=== PATIENT | female | born 1985 | race American Indian/Alaskan Native ===

== ENCOUNTER 2017-05-24 10:09 | Emergency (ER) | payer BC, MEDICAID ==
[~2017-05-24] VITALS: Ht 160 cm; Wt 92.5 kg
[~2017-05-24 10:09] MED LIST: OMEP20CA74 OR
[2017-05-24] MEDS ORDERED: SODIUM CHLORIDE 0.9% 1,000 ML IVB ONE (10:38)
[2017-05-24] MEDS ORDERED: ONDANSETRON HCL 4 MG/2 ML VIAL IV ONE (10:45)
[2017-05-24] MEDS ORDERED: MORPHINE SULFATE 4 MG/ML SYRG IV ONE (10:45)
[2017-05-24 10:58] LABS: Basophils # (auto) 0 uL; Basophils % (auto) 0.5 % (0.0-2.0); CONDITION Y; DEFINITIVE SEE PRINTOUT; Eosinophils # (auto) 0.2 uL; Eosinophils % (auto) 3.9 % (0.0-7.0); Hematocrit 39.4 % (36.0-46.0); Hemoglobin 12.9 g/dL (12.2-16.2); Lymphocytes % (auto) 31.4 % (10.0-50.0); Mean Corpuscular Hemoglobin 25.5 pg (28.0-32.0); Mean Corpuscular Hgb Conc. 32.7 g/dL (32.0-36.0); Mean Corpuscular Volume 77.9 fL (80.0-100.0); Mean Platelet Volume 8.5 fL (7.4-10.4); Monocytes # (auto) 0.4 uL; Monocytes % (auto) 6.1 % (0.0-12.0); Neutrophils # (auto) 3.7 uL; Neutrophils % (auto) 58.1 % (37.0-80.0); Platelet Count (auto) 250 10^3/uL (140-450); Red Cell Distribution Width 15.4 % (11.6-16.0); White Blood Cell 6.3 10^3/uL (4.4-10.8)
[2017-05-24 11:10] LABS: Albumin 3.5 g/dL (3.4-5.0); BUN/Creatinine Ratio 11.1; Bilirubin, Total 0.3 mg/dL (0.2-1.0); Calcium 8.7 mg/dL (8.5-10.1); Potassium 3.7 mmol/L (3.5-5.1); Total Protein 7.8 g/dL (6.4-8.2)
[2017-05-24] MEDS ORDERED: KETOROLAC TROMETH 30 MG/ML 1ML VIAL IV ONE (11:15)
[2017-05-24 12:28] LABS: Urine Bilirubin Negative (Negative); Urine Blood TRACE /uL (Negative); Urine Color Yellow (Yellow); Urine Glucose Normal (Normal); Urine Nitrite Negative (Negative); Urine RBC <1 /hpf (0 - 4); Urine Squamous Epithelial Cell FEW /hpf (<5); Urine Urobilinogen Normal (Negative)
[2017-05-24 12:31] LABS: Urine Ketone 1+ (Negative)
[2017-05-24 14:54] VITALS: BP 150/95
== END 2017-05-24 14:53 | disposition home or self-care (01) ==
LOC: ER 10:10
DX: R10.31 Right lower quadrant pain (principal); K21.9 Gastro-esophageal reflux disease without esophagitis; Z90.49 Acquired absence of other specified parts of digestive tract
CPT/HCPCS: 36415; 74176; 76705; 76856; 80053; 81001; 82150; 83690; 85025; 96361; 96374; 99285; J1885; J7030

== ENCOUNTER → 2018-01-17 | Outpatient (CLI) | payer OTHER | END | disposition home or self-care (01) | LOC: LAB 10:26 | PROVIDERS: ATTEND Preventive Medicine Preventive Medicine/Occupational Environmental Medicine | DX: Z02.1 Encounter for pre-employment examination (principal) | CPT/HCPCS: 36415; 86706; 86735; 86762; 86765; 86787 ==

== ENCOUNTER 2019-07-19 12:00 | Observation (INO) | payer BC, MEDICAID ==
[2019-07-19] MEDS ORDERED: PREN-96 PO (12:36)
[2019-07-19] MEDS ORDERED: LACTATED RINGER'S 1,000 ML IV ONE (13:00)
[2019-07-19] MEDS: TERBUTALINE SULFATE 1 MG/ML 1ML VIAL SC SCH ×3 (13:15→15:43)
[2019-07-19 13:59] LABS: Urine Bacteria FEW /hpf (None Seen); Urine Blood Negative /uL (Negative); Urine Specific Gravity 1.011 (1.001-1.035); Urine WBC 1 /hpf (0 - 5)
[2019-07-19] MEDS ORDERED: NIFEdipine 10 MG CAP PO ONE (16:15)
== END 2019-07-19 17:40 | disposition home or self-care (01) | DRG 833 ==
LOC: LDRP 12:00
PROVIDERS: ADMIT Specialist; ATTEND Specialist
DX: O26.893 Other specified pregnancy related conditions, third trimester (principal); R10.30 Lower abdominal pain, unspecified; Z3A.32 32 weeks gestation of pregnancy
CPT/HCPCS: 59025; 81001; 81002; 96372; G0378; J3105; 96361

== ENCOUNTER 2019-08-05 20:11 | Observation (INO) | payer BC, MEDICAID ==
[~2019-08-05] VITALS: Ht 160 cm; Wt 86.2 kg
[~2019-08-05 20:11] MED LIST changes: -OMEP20CA74 OR; +PREN-96 PO
[2019-08-05 20:24] VITALS: BP 115/77
[2019-08-05] MEDS ORDERED: ACETAMINOPHEN 500 MG TAB PO ONE (23:00)
== END 2019-08-05 22:16 | disposition other institution (70) | DRG 833 ==
LOC: EEVIPCON 20:14 → ER 20:14 → LDRP 21:36
PROVIDERS: ADMIT Obstetrics & Gynecology; ATTEND Obstetrics & Gynecology
DX: O26.893 Other specified pregnancy related conditions, third trimester (principal); M25.561 Pain in right knee; K21.9 Gastro-esophageal reflux disease without esophagitis; O99.613 Diseases of the digestive system complicating pregnancy, third trimester; S81.011A Laceration without foreign body, right knee, initial encounter; W19.XXXA Unspecified fall, initial encounter; Y93.89 Activity, other specified; Y92.099 Unspecified place in other non-institutional residence as the place of occurrence of the external cause; Y99.8 Other external cause status; Z3A.34 34 weeks gestation of pregnancy; Z90.49 Acquired absence of other specified parts of digestive tract
CPT/HCPCS: 12002; 59025; 81002; 99284; G0378

== ENCOUNTER 2019-09-02 06:06 | Inpatient (IN) | payer BC, MEDICAID ==
[2019-09-02] VITALS (12 sets, daily range): BP systolic 102–120; BP diastolic 59–80
[~2019-09-02] VITALS: Ht 160 cm; Wt 89.4 kg
[2019-09-02] MEDS ORDERED: TERBUTALINE SULFATE 1 MG/ML 1ML VIAL SC ONE (07:00)
[2019-09-02 07:21] LABS: Basophils # (auto) 0 uL; Basophils % (auto) 0.2 % (0.0-2.0); Eosinophils # (auto) 0.1 uL; Eosinophils % (auto) 1.4 % (0.0-7.0); Hematocrit 35.9 % (36.0-46.0); Hemoglobin 12.3 g/dL (12.2-16.2); Lymphocytes # (auto) 1.4 uL; Lymphocytes % (auto) 17.2 % (10.0-50.0); Mean Corpuscular Hemoglobin 29.7 pg (28.0-32.0); Mean Corpuscular Hgb Conc. 34.2 g/dL (32.0-36.0); Mean Corpuscular Volume 86.8 fL (80.0-100.0); Monocytes # (auto) 0.5 uL; Monocytes % (auto) 6.3 % (0.0-12.0); Neutrophils # (auto) 6.3 uL; Neutrophils % (auto) 74.9 % (37.0-80.0); Nucleated Red Blood Cells % 0.1 %; Platelet Count (auto) 128 10^3/uL (140-450); Red Blood Cells 4.14 10^6/uL (4.0-5.20); Red Cell Distribution Width 14.5 % (11.8-14.3); White Blood Cell 8.4 10^3/uL (4.4-10.8)
[2019-09-02 07:26] LABS: Urine Amorphous Crystal FEW /hpf (None Seen); Urine Bacteria FEW /hpf (None Seen); Urine Blood Negative /uL (Negative); Urine Specific Gravity 1.002 (1.001-1.035); Urine WBC 4 /hpf (0 - 5)
[2019-09-02] MEDS ORDERED: LACTATED RINGER'S 1,000 ML IV ONE (07:30)
[2019-09-02] MEDS ORDERED: SUCCINYLCHOLINE CHLORIDE 20 MG/ML 10ML VIAL IV ONE (07:31)
[2019-09-02] MEDS ORDERED: fentaNYL CITRATE 100 MCG/2 ML VL ONE (07:32)
[2019-09-02] MEDS ORDERED: MEPERIDINE HCL (25 MG/ML) 1ML VIAL ONE (07:32)
[2019-09-02] MEDS ORDERED: MIDAZOLAM HCL 1MG/1ML-2 ML VIAL ONE (07:33)
[2019-09-02 07:39] LABS: INR < 0.93 (0.9-1.15); Partial Thromboplastin Time 25.1 sec (23.64-32.05)
[2019-09-02 07:47] LABS: Albumin 2.2 g/dL (3.4-5.0); BUN/Creatinine Ratio 5.6; Bilirubin, Total 0.3 mg/dL (0.2-1.0); Calcium 7.9 mg/dL (8.5-10.1); Potassium 3.7 mmol/L (3.5-5.1); Total Protein 6.1 g/dL (6.4-8.2)
[2019-09-02] MEDS ORDERED: PROPOFOL 10 MG/ML 20 ML IV ONE (07:55)
[2019-09-02] MEDS ORDERED: LACT. RINGERS/OXYTOCIN 20UNITS 1,000 ML IV SCH (08:23)
[2019-09-02] MEDS ORDERED: ceFAZolin 1GM/50ML 50 ML IV SCH (08:30)
[2019-09-02] MEDS ORDERED: ONDANSETRON HCL 4 MG/2 ML VIAL IV PRN ×2 (08:30→08:45)
[2019-09-02] MEDS ORDERED: HYDROmorphone HCL 2 MG/ML VL ONE (08:39)
[2019-09-02] MEDS: HYDROmorphone HCL 2 MG/ML VL IV PRN ×4 (08:39→09:09)
[2019-09-02] MEDS ORDERED: ePHEDrine SULFATE 50 MG/ML AMP IV PRN (08:45)
[2019-09-02] MEDS ORDERED: LABETALOL HCL 5 MG/ML 4ML SYRINGE IV PRN (08:45)
[2019-09-02] MEDS ORDERED: MORPHINE SULFATE 4 MG/ML SYR/VIAL IV PRN (08:45)
[2019-09-02] MEDS ORDERED: MIDAZOLAM HCL 1MG/1ML-2 ML VIAL IV PRN (08:45)
[2019-09-02] MEDS ORDERED: ACETAMINOPHEN IV 1000 MG/100ML (10MG/ML) IV ONE ×2 (09:45→19:00)
--- NOTE | 2019-09-02 10:30 | NUR ---
Post Op for LDRP: Received patient from PACU via bed to room 103. Patient A/A/Ox4, abdominal binder and bilateral SCD's are in place, IV fluids placed on pump and infusing per order, incisional site dressing dry/intact and Burgos Catheter to gravity draining clear yellow urine. Incentive Spirometer at bedside and instruction on proper use with return demonstration done by patient. Addendum: 09/02/19 at 1115 by Justina Graves RN incorrect time . Post op to LDRP at 10:00
[2019-09-02] MEDS ORDERED: MEASLES, MUMPS & RUBELLA VAC(MMRII) 0.5ML SC ONE (12:00)
--- NOTE | 2019-09-02 14:00 | NUR ---
Pericare Pericare done on patient. Small bleeding noted during fundal massage. Pericare saturated assisted . New pad and gown change done. Patient tolerated well.
[2019-09-02] MEDS: ceFAZolin 1GM/50ML 50 ML IV SCH ×2 (15:55→23:09)
[2019-09-02] MEDS ORDERED: WITCH HAZEL-GLYCERIN PAD TOP PRN (17:30)
[2019-09-02] MEDS ORDERED: PHISODERM TOP SOLN 240ML BTL TOP PRN (17:30)
[2019-09-02] MEDS ORDERED: DERMOPLAST 60ML BOTTLE TOP PRN (17:30)
--- NOTE | 2019-09-02 17:30 | NUR ---
Pericare Pericare provided . bleeding scant with 1 small clot noted during fundal massage. Fundus firm 1 below umbilicus. Pad changed and abdominal binder repositioned. Patient tolerated well.
[2019-09-02] MEDS: MORPHINE SULFATE 4 MG/ML SYR/VIAL IV PRN (17:42)
[2019-09-02 19:38] LABS: Basophils # (auto) 0 uL; Basophils % (auto) 0.3 % (0.0-2.0); Eosinophils # (auto) 0 uL; Eosinophils % (auto) 0.3 % (0.0-7.0); Hematocrit 34.4 % (36.0-46.0); Hemoglobin 11.8 g/dL (12.2-16.2); Lymphocytes # (auto) 1.3 uL; Lymphocytes % (auto) 11.1 % (10.0-50.0); Mean Corpuscular Hemoglobin 29.8 pg (28.0-32.0); Mean Corpuscular Hgb Conc. 34.4 g/dL (32.0-36.0); Mean Corpuscular Volume 86.7 fL (80.0-100.0); Monocytes # (auto) 0.7 uL; Monocytes % (auto) 5.7 % (0.0-12.0); Neutrophils # (auto) 9.7 uL; Neutrophils % (auto) 82.6 % (37.0-80.0); Platelet Count (auto) 132 10^3/uL (140-450); Red Blood Cells 3.97 10^6/uL (4.0-5.20); Red Cell Distribution Width 14.3 % (11.8-14.3); White Blood Cell 11.7 10^3/uL (4.4-10.8)
--- NOTE | 2019-09-02 21:00 | NUR ---
This RN assisted pt with sitting up in bed dangling. Warm water wash basin and fresh linen supplied as well as personal hygiene items to provide self care. Fresh gown provided and toothpaste/toothbrush. Pt cared for her hygiene. Assistance provided out of bed with slipper on, pagan to gravity and IV pole running at 125 LR to right hand. No dangling cords. This RN ambulated with patient 500 feet with in open crib. Pt tolerated well. All linen changed, ice chips provided
[2019-09-02] MEDS ORDERED: LACTATED RINGER'S 1,000 ML IV SCH (23:15)
[2019-09-03] MEDS ORDERED: ACETAMINOPHEN IV 1000 MG/100ML (10MG/ML) IV ONE (01:00)
[2019-09-03 02:56] VITALS: BP 102/70
--- NOTE | 2019-09-03 05:54 | NUR ---
Burgos cath removed, patient tolerated well. 400 clear yellow urine. Cindy care provided, dressing removed. [place] WEBMASTER, intact. Site benign. Dressing moist with serousanguenous fluid from incision.
[2019-09-03 06:50] VITALS: BP 115/70
[2019-09-03 06:59] LABS: Basophils # (auto) 0 uL; Basophils % (auto) 0.3 % (0.0-2.0); Eosinophils # (auto) 0 uL; Eosinophils % (auto) 0.3 % (0.0-7.0); Hematocrit 35.4 % (36.0-46.0); Hemoglobin 12.1 g/dL (12.2-16.2); Lymphocytes # (auto) 1.2 uL; Lymphocytes % (auto) 12.4 % (10.0-50.0); Mean Corpuscular Hemoglobin 29.9 pg (28.0-32.0); Mean Corpuscular Hgb Conc. 34.2 g/dL (32.0-36.0); Mean Corpuscular Volume 87.5 fL (80.0-100.0); Monocytes # (auto) 0.5 uL; Monocytes % (auto) 5.5 % (0.0-12.0); Neutrophils % (auto) 81.5 % (37.0-80.0); Platelet Count (auto) 128 10^3/uL (140-450); Red Blood Cells 4.05 10^6/uL (4.0-5.20); Red Cell Distribution Width 14.7 % (11.8-14.3); White Blood Cell 9.8 10^3/uL (4.4-10.8)
--- NOTE | 2019-09-03 07:40 | NUR ---
VOID #1 PT AMBULATED TO BATHROOM VIA STEADY GAIT. NO DISTRESS NOTED. PT VOIDED 400ML PINK TINGED URINE WITHOUT DIFFICULTY. WILL CONTINUE TO MONITOR.
[2019-09-03] MEDS: ceFAZolin 1GM/50ML 50 ML IV SCH (07:49)
[2019-09-03] MEDS: MORPHINE SULFATE 4 MG/ML SYR/VIAL IV PRN (07:49)
--- NOTE | 2019-09-03 09:29 | NUR ---
VOID #2 PT AMBULATED TO BATHROOM VIA STEADY GAIT. NO DISTRESS NOTED. PT VOIDED 375ML PINK TINGED URINE WITHOUT DIFFICULTY. WILL CONTINUE TO MONITOR.
[2019-09-03] MEDS ORDERED: HYDROcodone-ACET 5/325MG TAB PO PRN (10:15)
[2019-09-03] MEDS: DOCUSATE SOD 100 MG CAP PO SCH ×2 (10:38→21:31)
[2019-09-03] MEDS: SIMETHICONE 80 MG CHEWABLE TABLET PO PRN ×2 (10:38→16:14)
[2019-09-03] MEDS: HYDROcodone-ACET 5/325MG TAB PO PRN ×3 (10:39→21:34)
[2019-09-03 11:10] VITALS: BP 118/73
[2019-09-03] MEDS: IBUPROFEN 800 MG TAB PO PRN (13:39)
[2019-09-03 15:00] VITALS: BP 105/64
--- NOTE | 2019-09-03 16:10 | NUR ---
PT STATES SHE AHS PASSED FLATUS, ADVANCING DIET PER ORDERS. WILL CONTINUE TO MONITOR.
[2019-09-03 18:47] VITALS: BP 109/67
[2019-09-03] MEDS ORDERED: DOCUSATE SOD 100 MG CAP PO SCH (22:00)
[2019-09-03 23:00] VITALS: BP 105/62
[2019-09-04] MEDS: IBUPROFEN 800 MG TAB PO PRN ×3 (02:31→20:32)
[2019-09-04 02:34] VITALS: BP 127/72
[2019-09-04 06:30] VITALS: BP 102/63
[2019-09-04 07:07] LABS: RPR Non Reactive (Non Reactive)
[2019-09-04] MEDS: DOCUSATE SOD 100 MG CAP PO SCH ×2 (09:45→22:00)
[2019-09-04 11:00] VITALS: BP 105/75
[2019-09-04 15:15] VITALS: BP 109/67
[2019-09-04] MEDS: HYDROcodone-ACET 5/325MG TAB PO PRN ×2 (16:11→22:33)
[2019-09-04 19:15] VITALS: BP 106/72
--- NOTE | 2019-09-04 20:45 | NUR ---
IV removal IV DC'd in right hand with clean sterile technique, catheter fully intact. Pressure dressing applied to site. Patient tolerated well. NOTE:
[2019-09-04 23:00] VITALS: BP 118/72
[2019-09-05 03:15] VITALS: BP 104/62
[2019-09-05] MEDS: IBUPROFEN 800 MG TAB PO PRN (05:25)
--- NOTE | 2019-09-05 07:15 | NUR ---
REPORT RECEIVED FROM LELE MERIDA RN. WILL RESUME CARE OF PT.
[2019-09-05 07:25] VITALS: BP 127/79
[2019-09-05] MEDS ORDERED: MEASLES, MUMPS & RUBELLA VAC(MMRII) 0.5ML SC ONE (08:30)
--- NOTE | 2019-09-05 09:31 | NUR ---
Discharge: Discharge instructions given as ordered. Pt encouraged to follow up with EXECUTIVE ASSISTANT as instructed. All questions and concerns addressed. Patient verbalized understanding. Medication reconciliation completed and copy given to patient. All required/requested vaccines given and copies of vaccinations given to patient. Patient encouraged to prepare to depart unit.
--- NOTE | 2019-09-05 09:35 | NUR ---
Discharge: Patient taken to vehicle via ambulation per request with all personal belongings, accompanied by staff and family member. No distress noted at time of departure, no adverse changes in status since initial assessment.
== END 2019-09-05 09:35 | disposition home or self-care (01) | DRG 787 ==
LOC: LDRP 06:06 → EEVIPCON 06:50 → OBSVTOIN 06:50 → LDRP 08:07
PROVIDERS: ADMIT Obstetrics & Gynecology; ATTEND Obstetrics & Gynecology
PROC: 10D00Z1 Extraction of Products of Conception, Low, Open Approach (ICD-10-PCS; principal; 2019-09-02 07:35)
DX: O76 Abnormality in fetal heart rate and rhythm complicating labor and delivery (principal); O41.03X0 Oligohydramnios, third trimester, not applicable or unspecified; O77.0 Labor and delivery complicated by meconium in amniotic fluid; Z37.0 Single live birth; Z3A.37 37 weeks gestation of pregnancy
CPT/HCPCS: 36415; 51702; 59025; 80053; 81001; 81002; 84112; 85025; 85610; 85730; 86592; 86850; 86900; 86901; 90471; 94762; 96365; 96366; 96372; 96375; G0378; J0131; J0330; J0690; J2250; J2704

== ENCOUNTER → 2020-01-14 | Outpatient (CLI) | payer BC, MEDICAID ==
[~2020-01-14] VITALS: Ht 162.6 cm; Wt 88.5 kg
[2020-01-14 12:28] LABS: Basophils # (auto) 0 10 ^3/uL (0-0.2); Basophils % (auto) 0.5 % (0.0-2.0); Eosinophils # (auto) 0.4 10 ^3/uL (0-0.8); Eosinophils % (auto) 5.2 % (0.0-7.0); Hematocrit 43.7 % (36.0-46.0); Hemoglobin 14.4 g/dL (12.2-16.2); Lymphocytes # (auto) 2.1 10 ^3/uL (0.4-5.4); Lymphocytes % (auto) 26.9 % (10.0-50.0); Mean Corpuscular Hemoglobin 27.3 pg (28.0-32.0); Mean Corpuscular Volume 82.9 fL (80.0-100.0); Monocytes # (auto) 0.5 10 ^3/uL (0-1.3); Monocytes % (auto) 6.1 % (0.0-12.0); Neutrophils # (auto) 4.7 10 ^3/uL (1.6-8.6); Neutrophils % (auto) 61.3 % (37.0-80.0); Platelet Count (auto) 234 10^3/uL (140-450); Red Blood Cells 5.27 10^6/uL (4.0-5.20); Red Cell Distribution Width 13.4 % (11.8-14.3); White Blood Cell 7.7 10^3/uL (4.4-10.8)
[2020-01-14 12:35] LABS: Urine Bacteria NONE SEEN /hpf (None Seen); Urine Blood Negative /uL (Negative); Urine Specific Gravity 1.022 (1.001-1.035); Urine WBC <1 /hpf (0 - 5)
[2020-01-14 12:47] LABS: Albumin 3.4 g/dL (3.4-5.0); Calcium 8.8 mg/dL (8.5-10.1); Potassium 3.6 mmol/L (3.5-5.1)
[2020-01-14 12:50] LABS: Bilirubin, Total 0.2 mg/dL (0.2-1.0); INR 0.96 (0.9-1.15); Partial Thromboplastin Time 26.8 sec (23.64-32.05); Total Protein 7.9 g/dL (6.4-8.2)
== END | disposition home or self-care (01) ==
LOC: LAB 08:00 → EDSTATUS 01-18 07:00
PROVIDERS: ATTEND Specialist
DX: Z30.2 Encounter for sterilization (principal); E66.9 Obesity, unspecified; Z98.890 Other specified postprocedural states
CPT/HCPCS: 36415; 80053; 81001; 84702; 85025; 85610; 85730; 86850; 86900; 86901; 87086

== ENCOUNTER → 2020-05-05 | Outpatient (CLI) | payer BC, MEDICAID | END | disposition home or self-care (01) | LOC: LAB 17:40 | PROVIDERS: ATTEND Physician Assistant | DX: Z03.818 Encounter for observation for suspected exposure to other biological agents ruled out (principal) | CPT/HCPCS: C9803; U0003; 87635 ==

== ENCOUNTER → 2020-06-18 | Outpatient (CLI) | payer OTHER | END | disposition home or self-care (01) | LOC: LAB 16:04 | PROVIDERS: ATTEND Nurse Practitioner Family | DX: Z03.818 Encounter for observation for suspected exposure to other biological agents ruled out (principal) ==

== ENCOUNTER → 2020-06-26 | Outpatient (CLI) | payer OTHER | END | disposition home or self-care (01) | LOC: LAB 16:33 | PROVIDERS: ATTEND Nurse Practitioner Family | DX: Z20.828 Contact with and (suspected) exposure to other viral communicable diseases (principal) | CPT/HCPCS: C9803; U0003 ==

== ENCOUNTER → 2020-09-11 | Outpatient (CLI) | payer OTHER | END | disposition home or self-care (01) | LOC: LAB 06:09 | PROVIDERS: ATTEND Nurse Practitioner Family | DX: Z20.828 Contact with and (suspected) exposure to other viral communicable diseases (principal) | CPT/HCPCS: C9803; U0003 ==

== ENCOUNTER 2020-12-31 15:30 | Emergency (ER) | payer BC, MEDICAID ==
[~2020-12-31] VITALS: Ht 162.6 cm; Wt 95.7 kg
[2020-12-31] MEDS ORDERED: cefTRIAXone SOD 1,000 MG VL IM ONE (16:15)
[2020-12-31] MEDS ORDERED: methylPREDNISolone SOD SUCC 125 MG/2 ML VL IM ONE (16:15)
[2020-12-31 16:19] VITALS: BP 138/93
== END 2020-12-31 16:51 | disposition home or self-care (01) ==
LOC: EEVIPCON 15:30 → ER 15:30
DX: H66.92 Otitis media, unspecified, left ear (principal); J01.01 Acute recurrent maxillary sinusitis; K21.9 Gastro-esophageal reflux disease without esophagitis; Z90.49 Acquired absence of other specified parts of digestive tract
CPT/HCPCS: 96372; 99284; J0696; J2930

== ENCOUNTER → 2021-02-11 | Outpatient (CLI) | payer BC, MEDICAID ==
[2021-02-11 10:23] LABS: Basophils # (auto) 0 10 ^3/uL (0-0.2); Basophils % (auto) 0.5 % (0.0-2.0); Eosinophils # (auto) 0.2 10 ^3/uL (0-0.8); Eosinophils % (auto) 3.6 % (0.0-7.0); Hematocrit 35.2 % (36.0-46.0); Hemoglobin 11.1 g/dL (12.2-16.2); Lymphocytes # (auto) 2.1 10 ^3/uL (0.4-5.4); Lymphocytes % (auto) 33.9 % (10.0-50.0); Mean Corpuscular Hemoglobin 22.4 pg (28.0-32.0); Mean Corpuscular Hgb Conc. 31.6 g/dL (32.0-36.0); Mean Corpuscular Volume 70.9 fL (80.0-100.0); Monocytes # (auto) 0.5 10 ^3/uL (0-1.3); Monocytes % (auto) 7.3 % (0.0-12.0); Neutrophils # (auto) 3.4 10 ^3/uL (1.6-8.6); Neutrophils % (auto) 54.7 % (37.0-80.0); Nucleated Red Blood Cells % 0.1 %; Platelet Count (auto) 268 10^3/uL (140-450); Red Blood Cells 4.97 10^6/uL (4.0-5.20); Red Cell Distribution Width 15.8 % (11.8-14.3); White Blood Cell 6.2 10^3/uL (4.4-10.8)
[2021-02-11 11:21] LABS: Albumin 3.3 g/dL (3.4-5.0); Potassium 3.8 mmol/L (3.5-5.1)
[2021-02-11 11:29] LABS: BUN/Creatinine Ratio 9.6; Bilirubin, Total 0.3 mg/dL (0.2-1.0); Calcium 8.7 mg/dL (8.5-10.1); Total Protein 7.1 g/dL (6.4-8.2)
[2021-02-11 11:30] LABS: Free T4 (Free Thyroxine) 1.08 ng/dL (0.89-1.76)
[2021-02-11 11:31] LABS: T3 Total 1.23 ng/mL (0.60-1.81)
== END | disposition home or self-care (01) ==
LOC: LAB 10:09
PROVIDERS: ATTEND Physician Assistant
DX: N92.1 Excessive and frequent menstruation with irregular cycle (principal); R53.83 Other fatigue; K21.9 Gastro-esophageal reflux disease without esophagitis; E55.9 Vitamin D deficiency, unspecified; E66.8 Other obesity
CPT/HCPCS: 36415; 80053; 80061; 82306; 84439; 84443; 84480; 85025

== ENCOUNTER 2021-05-22 11:21 | Inpatient (IN) | payer BC, MEDICAID ==
[2021-05-19 12:32] LABS: Basophils # (auto) 0.1 10 ^3/uL (0-0.2); Eosinophils # (auto) 0.3 10 ^3/uL (0-0.8); Hemoglobin 10.6 g/dL (12.2-16.2); Mean Corpuscular Hemoglobin 21.5 pg (28.0-32.0); Mean Corpuscular Hgb Conc. 31.6 g/dL (32.0-36.0); Mean Corpuscular Volume 68.1 fL (80.0-100.0); Monocytes # (auto) 0.6 10 ^3/uL (0-1.3); White Blood Cell 7.2 10^3/uL (4.4-10.8)
[2021-05-19 12:33] LABS: Basophils % (auto) 0.7 % (0.0-2.0); Eosinophils % (auto) 4.3 % (0.0-7.0); Hematocrit 33.4 % (36.0-46.0); Lymphocytes % (auto) 28.3 % (10.0-50.0); Monocytes % (auto) 7.9 % (0.0-12.0); Neutrophils # (auto) 4.2 10 ^3/uL (1.6-8.6); Neutrophils % (auto) 58.8 % (37.0-80.0); Red Blood Cells 4.91 10^6/uL (4.0-5.20)
[2021-05-19 12:39] LABS: Partial Thromboplastin Time 26.3 sec (23.0-31.2)
[2021-05-19 13:18] LABS: Urine Bacteria FEW /hpf (None Seen); Urine Blood 1+ /uL (Negative); Urine Specific Gravity 1.019 (1.001-1.035); Urine WBC 1 /hpf (0 - 5)
[2021-05-19 13:32] LABS: Albumin 3.2 g/dL (3.4-5.0); BUN/Creatinine Ratio 9.3; Calcium 8.2 mg/dL (8.5-10.1); Potassium 3.7 mmol/L (3.5-5.1)
[2021-05-19 13:35] LABS: Bilirubin, Total 0.3 mg/dL (0.2-1.0); Total Protein 7.1 g/dL (6.4-8.2)
[~2021-05-22] VITALS: Ht 160 cm; Wt 97.9 kg
[~2021-05-22 11:21] MED LIST changes: -PREN-96 PO; +SERT25TA84 PO
[2021-05-22] MEDS ORDERED: ceFAZolin 1GM/50ML 50 ML IV ONE (13:16)
[2021-05-22] MEDS ORDERED: MIDAZOLAM HCL 2MG/2ML 2ml VIAL (1mg/ml) ONE (14:05)
[2021-05-22] MEDS ORDERED: fentaNYL CITRATE 100 MCG/2 ML VL ONE (14:05)
[2021-05-22] MEDS ORDERED: PROPOFOL 10 MG/ML 20 ML IV ONE (14:06)
[2021-05-22] MEDS ORDERED: LIDOCAINE 2% (LOCAL ANESTH.) PF 5ml SDV ONE (14:06)
[2021-05-22] MEDS ORDERED: ONDANSETRON HCL 4 MG/2 ML VIAL ONE (14:06)
[2021-05-22] MEDS ORDERED: NEOSTIGMINE 1 MG/ML INJ (10mg/10ML VIAL) ONE (15:06)
[2021-05-22] MEDS ORDERED: GLYCOPYRROLATE 0.2 MG/ML 1ML VIAL ONE (15:06)
[2021-05-22] MEDS ORDERED: SUGAMMADEX 200mg/2ml Vial (100MG/ML) IV ONE (15:25)
[2021-05-22] MEDS ORDERED: ONDANSETRON HCL 4 MG/2 ML VIAL IV PRN ×3 (15:30→19:00)
[2021-05-22] MEDS ORDERED: LACTATED RINGER'S 1,000 ML IV SCH (15:30)
[2021-05-22] MEDS ORDERED: HYDROmorphone HCL 2 MG/ML VL ONE (15:47)
[2021-05-22] MEDS: HYDROmorphone HCL 2 MG/ML VL IV PRN ×2 (15:48→16:04)
[2021-05-22 17:10] LABS: Basophils # (auto) 0 10 ^3/uL (0-0.2); Eosinophils # (auto) 0.1 10 ^3/uL (0-0.8); Monocytes # (auto) 0.4 10 ^3/uL (0-1.3)
[2021-05-22 17:12] LABS: Basophils % (auto) 0.3 % (0.0-2.0); Eosinophils % (auto) 1.2 % (0.0-7.0); Hematocrit 31.4 % (36.0-46.0); Lymphocytes # (auto) 1.2 10 ^3/uL (0.4-5.4); Lymphocytes % (auto) 14.1 % (10.0-50.0); Mean Corpuscular Hemoglobin 21.9 pg (28.0-32.0); Mean Corpuscular Hgb Conc. 31.8 g/dL (32.0-36.0); Mean Corpuscular Volume 68.7 fL (80.0-100.0); Monocytes % (auto) 4.3 % (0.0-12.0); Neutrophils % (auto) 80.1 % (37.0-80.0); Red Blood Cells 4.57 10^6/uL (4.0-5.20); Red Cell Distribution Width 16.9 % (11.8-14.3); White Blood Cell 8.7 10^3/uL (4.4-10.8)
[2021-05-22] MEDS ORDERED: NITROGLYCERIN 0.4 MG SL TAB SL PRN ×2 (18:15→19:00)
[2021-05-22] MEDS ORDERED: MORPHINE SULFATE INJECTION 2 MG/ML SYRG IV PRN ×3 (18:15→19:00)
[2021-05-22] MEDS ORDERED: LACTATED RINGER'S 2,000 ML IV ONE (18:45)
[2021-05-22] MEDS ORDERED: CLINDAMYCIN 600MG IV 50 ML IV ONE (19:00)
[2021-05-22] MEDS ORDERED: LORazepam 0.5 MG TAB PO PRN (19:00)
[2021-05-22] MEDS ORDERED: ALUM & MAG HYDROX-SIMETH LIQ(MAALOX) 30 ML PO PRN (19:00)
[2021-05-22] MEDS ORDERED: HYDROcodone-ACET 5/325MG TAB PO PRN (19:00)
[2021-05-22] MEDS ORDERED: DOCUSATE SOD 100 MG CAP PO PRN (19:00)
[2021-05-22] MEDS ORDERED: ALBUTEROL SULF 2.5 MG/0.5ML(0.5%) NEB SOLN NEB PRN (19:15)
[2021-05-22] MEDS ORDERED: CEFTRIAXONE SODIUM 2 GM in D5W 5% 50 ML IV ONE (19:45)
[2021-05-22 20:15] VITALS: BP 124/72
[2021-05-22] MEDS: SODIUM CHLORIDE 0.9% 1,000 ML IV SCH (20:30)
[2021-05-22 20:56] LABS: Cholesterol 164 mg/dL (< 200); HDL Cholesterol 42 mg/dL (40-59); LDL Cholesterol 104 mg/dL (< 100); Triglycerides 103 mg/dL (< 150)
[2021-05-22] MEDS ORDERED: IPRATROPIUM BROM 0.5 MG/2.5ML INH SOL NEB SCH (22:00)
[2021-05-23] VITALS (7 sets, daily range): BP systolic 90–124; BP diastolic 57–74
[2021-05-23 00:08] LABS: Urine Bacteria NONE SEEN /hpf (None Seen); Urine Blood 3+ /uL (Negative); Urine Mucus FEW (None Seen); Urine Specific Gravity 1.017 (1.001-1.035); Urine WBC 1 /hpf (0 - 5)
[2021-05-23 00:27] LABS: Alcohol, Urine < 3.0 mg/dL (0-10); Amphetamine Screen, Urine NEGATIVE (NEGATIVE); Barbiturate Scree,Urine NEGATIVE (NEGATIVE); Benzodiazephine Screen, Urine POSITIVE (NEGATIVE); Cannabinoid Screen, Urine NEGATIVE (NEGATIVE); Cocaine Screen, Urine NEGATIVE (NEGATIVE); Opiate Scree,Urine NEGATIVE (NEGATIVE); Phencyclidine Screen, Urine NEGATIVE (NEGATIVE)
[2021-05-23] MEDS: CLINDAMYCIN 600MG IV 50 ML IV SCH ×3 (05:12→21:00)
[2021-05-23] MEDS ORDERED: IPRATROPIUM BROM 0.5 MG/2.5ML INH SOL ONE (06:37)
[2021-05-23] MEDS ORDERED: ALBUTEROL SULF 2.5 MG/0.5ML(0.5%) NEB SOLN ONE (06:37)
[2021-05-23 06:59] LABS: Basophils # (auto) 0 10 ^3/uL (0-0.2); Basophils % (auto) 0.3 % (0.0-2.0); Eosinophils # (auto) 0.1 10 ^3/uL (0-0.8); Eosinophils % (auto) 0.8 % (0.0-7.0); Lymphocytes # (auto) 1.9 10 ^3/uL (0.4-5.4)
[2021-05-23 07:01] LABS: Hematocrit 31.8 % (36.0-46.0); Hemoglobin 10.2 g/dL (12.2-16.2); Lymphocytes % (auto) 20.2 % (10.0-50.0); Mean Corpuscular Hgb Conc. 32.1 g/dL (32.0-36.0); Mean Corpuscular Volume 68.5 fL (80.0-100.0); Monocytes # (auto) 0.6 10 ^3/uL (0-1.3); Monocytes % (auto) 6.6 % (0.0-12.0); Neutrophils # (auto) 6.8 10 ^3/uL (1.6-8.6); Neutrophils % (auto) 72.1 % (37.0-80.0); Red Blood Cells 4.65 10^6/uL (4.0-5.20); Red Cell Distribution Width 16.8 % (11.8-14.3); White Blood Cell 9.4 10^3/uL (4.4-10.8)
[2021-05-23 07:10] LABS: INR 1.03 (0.9-1.15); Partial Thromboplastin Time 25.2 sec (23.0-31.2)
[2021-05-23 07:17] LABS: Potassium 3.7 mmol/L (3.5-5.1)
[2021-05-23 07:27] LABS: Albumin 2.7 g/dL (3.4-5.0); BUN/Creatinine Ratio 8.7; Bilirubin, Total 0.4 mg/dL (0.2-1.0); Calcium 7.8 mg/dL (8.5-10.1); Magnesium 2.1 mg/dL (1.6-2.6); Phosphorus 3.1 mg/dL (2.5-4.90); Total Protein 6.5 g/dL (6.4-8.2)
[2021-05-23] MEDS: IPRATROPIUM BROM 0.5 MG/2.5ML INH SOL NEB PRN ×2 (07:33→13:06)
[2021-05-23] MEDS: cefTRIAXone 1GM/50ML D5W 50 ML IV SCH (09:06)
[2021-05-23] MEDS: ACETAMINOPHEN 325 MG TAB PO PRN ×2 (09:18→19:53)
[2021-05-23] MEDS: SODIUM CHLORIDE 0.9% 1,000 ML IV SCH (11:51)
[2021-05-24] MEDS: SODIUM CHLORIDE 0.9% 1,000 ML IV SCH (04:20)
[2021-05-24 05:00] VITALS: BP 106/68
[2021-05-24] MEDS: CLINDAMYCIN 600MG IV 50 ML IV SCH ×2 (05:00→12:47)
[2021-05-24 08:15] VITALS: BP 98/62
[2021-05-24 09:00] VITALS: BP 98/62
[2021-05-24] MEDS: cefTRIAXone 1GM/50ML D5W 50 ML IV SCH (09:09)
[2021-05-24 11:18] VITALS: BP 98/62
== END 2021-05-24 12:15 | disposition home or self-care (01) | DRG 744 ==
LOC: SUR 11:21 → CENTRAL 19:10
PROVIDERS: ADMIT Hospitalist; ATTEND Specialist
PROC: 0UL74CZ Occlusion of Bilateral Fallopian Tubes with Extraluminal Device, Percutaneous Endoscopic Approach (ICD-10-PCS; principal; 2021-05-22 14:11)
DX: Z30.2 Encounter for sterilization (principal); J69.0 Pneumonitis due to inhalation of food and vomit; E44.1 Mild protein-calorie malnutrition; E66.01 Morbid (severe) obesity due to excess calories; F32.9 Major depressive disorder, single episode, unspecified; D64.9 Anemia, unspecified; R41.0 Disorientation, unspecified; Z20.822 Contact with and (suspected) exposure to COVID-19; Z80.0 Family history of malignant neoplasm of digestive organs; Z80.1 Family history of malignant neoplasm of trachea, bronchus and lung; Z80.3 Family history of malignant neoplasm of breast; Z80.41 Family history of malignant neoplasm of ovary; Z80.8 Family history of malignant neoplasm of other organs or systems; Z81.8 Family history of other mental and behavioral disorders; Z82.0 Family history of epilepsy and other diseases of the nervous system; Z82.3 Family history of stroke; Z82.49 Family history of ischemic heart disease and other diseases of the circulatory system; Z82.5 Family history of asthma and other chronic lower respiratory diseases; Z82.62 Family history of osteoporosis; Z83.3 Family history of diabetes mellitus; Z98.891 History of uterine scar from previous surgery; Z90.49 Acquired absence of other specified parts of digestive tract; Z64.1 Problems related to multiparity; Z68.37 Body mass index [BMI] 37.0-37.9, adult
CPT/HCPCS: 36415; 36600; 71045; 80053; 80061; 80307; 81001; 81025; 82306; 82805; 82962; 83036; 83735; 83880; 84100; 84443; 84484; 84702; 85025; 85610; 85730; 86850; 86900; 86901; 87040; 87086; 94640; G0378; J0690; J0696; J2001; J2250; J2405; J2704; J3490; J7060

== ENCOUNTER → 2021-10-19 | Outpatient (CLI) | payer BC, MEDICAID | END | disposition home or self-care (01) | LOC: LAB 07:08 | PROVIDERS: ATTEND Nurse Practitioner Family | DX: Z11.52 Encounter for screening for COVID-19 (principal); Z20.822 Contact with and (suspected) exposure to COVID-19 | CPT/HCPCS: C9803; U0003 ==

== ENCOUNTER 2021-12-14 09:34 | Emergency (ER) | payer BC, MEDICAID ==
[~2021-12-14] VITALS: Ht 162.6 cm; Wt 97.5 kg
[~2021-12-14 09:34] MED LIST changes: +PANT1INJ3 PO
[2021-12-14 10:47] LABS: Albumin 2.9 g/dL (3.4-5.0); Calcium 7.9 mg/dL (8.5-10.1); Potassium 4.2 mmol/L (3.5-5.1)
[2021-12-14 10:51] LABS: BUN/Creatinine Ratio 10.1; Bilirubin, Total 0.4 mg/dL (0.2-1.0); Total Protein 6.4 g/dL (6.4-8.2)
[2021-12-14] MEDS ORDERED: ONDANSETRON HCL 4 MG/2 ML VIAL IV ONE (11:00)
[2021-12-14] MEDS ORDERED: SODIUM CHLORIDE 0.9% 1,000 ML IV ONE ×2 (11:00)
[2021-12-14] MEDS ORDERED: KETOROLAC TROMETH 30 MG/ML 1ML VIAL IV ONE (11:00)
[2021-12-14 11:02] LABS: Urine Bacteria NONE SEEN /hpf (None Seen); Urine Blood Negative /uL (Negative); Urine Mucus FEW (None Seen); Urine Specific Gravity 1.019 (1.001-1.035); Urine WBC 1 /hpf (0 - 5)
[2021-12-14 11:15] LABS: Basophils # (auto) 0 10 ^3/uL (0-0.2); Eosinophils # (auto) 0.2 10 ^3/uL (0-0.8); Hemoglobin 9.3 g/dL (12.2-16.2); Lymphocytes # (auto) 1.6 10 ^3/uL (0.4-5.4); Monocytes # (auto) 0.4 10 ^3/uL (0-1.3); Nucleated Red Blood Cells % 0.1 %; White Blood Cell 4.7 10^3/uL (4.4-10.8)
[2021-12-14 11:17] LABS: Basophils % (auto) 0.6 % (0.0-2.0); Eosinophils % (auto) 4.6 % (0.0-7.0); Lymphocytes % (auto) 32.9 % (10.0-50.0); Mean Corpuscular Hemoglobin 20.3 pg (28.0-32.0); Mean Corpuscular Hgb Conc. 30.9 g/dL (32.0-36.0); Mean Corpuscular Volume 65.7 fL (80.0-100.0); Monocytes % (auto) 7.9 % (0.0-12.0); Neutrophils # (auto) 2.6 10 ^3/uL (1.6-8.6); Red Blood Cells 4.56 10^6/uL (4.0-5.20); Red Cell Distribution Width 16.8 % (11.8-14.3)
[2021-12-14 13:33] VITALS: BP 122/74
== END 2021-12-14 15:09 | disposition home or self-care (01) ==
LOC: ER 09:37
DX: E86.0 Dehydration (principal); M47.897 Other spondylosis, lumbosacral region; Z90.49 Acquired absence of other specified parts of digestive tract
CPT/HCPCS: 36415; 72131; 74176; 80053; 81001; 81025; 85025; 96361; 96374; 96375; 99285; J1885; J2405; J7030

== ENCOUNTER → 2022-01-05 | Day surgery (SDC) | payer BC, MEDICAID ==
[2021-12-02 09:46] LABS: Basophils # (auto) 0 10 ^3/uL (0-0.2); Eosinophils # (auto) 0.3 10 ^3/uL (0-0.8); Lymphocytes # (auto) 1.8 10 ^3/uL (0.4-5.4); Mean Corpuscular Volume 66.4 fL (80.0-100.0); Nucleated Red Blood Cells % 0.1 %
[2021-12-02 09:48] LABS: Basophils % (auto) 0.3 % (0.0-2.0); Hematocrit 34.6 % (36.0-46.0); Hemoglobin 10.5 g/dL (12.2-16.2); Lymphocytes % (auto) 25.3 % (10.0-50.0); Mean Corpuscular Hemoglobin 20.1 pg (28.0-32.0); Mean Corpuscular Hgb Conc. 30.3 g/dL (32.0-36.0); Monocytes # (auto) 0.5 10 ^3/uL (0-1.3); Monocytes % (auto) 7.3 % (0.0-12.0); Neutrophils # (auto) 4.5 10 ^3/uL (1.6-8.6); Neutrophils % (auto) 63.1 % (37.0-80.0); Red Blood Cells 5.22 10^6/uL (4.0-5.20); Red Cell Distribution Width 16.5 % (11.8-14.3); White Blood Cell 7.2 10^3/uL (4.4-10.8)
[2021-12-02 10:04] LABS: Potassium 3.6 mmol/L (3.5-5.1)
[2021-12-02 10:36] LABS: Albumin 3.1 g/dL (3.4-5.0); BUN/Creatinine Ratio 8.6; Bilirubin, Total 0.2 mg/dL (0.2-1.0); Calcium 8.9 mg/dL (8.5-10.1); Total Protein 7.5 g/dL (6.4-8.2)
[2022-01-04 11:31] LABS: Partial Thromboplastin Time 25.4 sec (23.6-33.0)
[2022-01-04 11:35] LABS: Potassium 3.3 mmol/L (3.5-5.1)
[2022-01-04 11:39] LABS: Albumin 3.3 g/dL (3.4-5.0); BUN/Creatinine Ratio 11.2; Calcium 8.6 mg/dL (8.5-10.1)
[2022-01-04 12:07] LABS: Lymphocytes # (auto) 2.1 10 ^3/uL (0.4-5.4); Monocytes # (auto) 0.5 10 ^3/uL (0-1.3); Neutrophils # (auto) 4.4 10 ^3/uL (1.6-8.6)
[2022-01-04 12:09] LABS: Basophils # (auto) 0 10 ^3/uL (0-0.2); Basophils % (auto) 0.5 % (0.0-2.0); Eosinophils # (auto) 0.3 10 ^3/uL (0-0.8); Eosinophils % (auto) 4.1 % (0.0-7.0); Hematocrit 32.5 % (36.0-46.0); Lymphocytes % (auto) 28.4 % (10.0-50.0); Mean Corpuscular Hemoglobin 20.4 pg (28.0-32.0); Mean Corpuscular Hgb Conc. 30.9 g/dL (32.0-36.0); Mean Corpuscular Volume 66.2 fL (80.0-100.0); Monocytes % (auto) 6.5 % (0.0-12.0); Neutrophils % (auto) 60.5 % (37.0-80.0); Nucleated Red Blood Cells % 0.1 %; Red Blood Cells 4.91 10^6/uL (4.0-5.20); Red Cell Distribution Width 16.8 % (11.8-14.3); White Blood Cell 7.2 10^3/uL (4.4-10.8)
[2022-01-04 12:26] LABS: Bilirubin, Total 0.2 mg/dL (0.2-1.0); Total Protein 7.5 g/dL (6.4-8.2)
[~2022-01-05] VITALS: Ht 162.6 cm; Wt 97.1 kg
[~2022-01-05] MED LIST changes: +LIDOCAINE VISCOUS 2% 15ML UD ONE; +SODIUM CHLORIDE LOCK 10 ML ONE
[2022-01-05] MEDS: fentaNYL CITRATE 100 MCG/2 ML VL ONE ×2 (10:21→10:24)
[2022-01-05] MEDS: MIDAZOLAM HCL 5 MG/ML-1ML VIAL ONE ×3 (10:21→10:27)
[2022-01-05] MEDS: diphenhdrAMINE HCL 50 MG/1 ML VL ONE ×2 (10:21→10:24)
[2022-01-05 11:10] VITALS: BP 113/66
== END | disposition home or self-care (01) ==
LOC: GI 09:18
PROVIDERS: ATTEND Internal Medicine Gastroenterology
DX: R13.10 Dysphagia, unspecified (principal); K29.50 Unspecified chronic gastritis without bleeding; K31.7 Polyp of stomach and duodenum; K44.9 Diaphragmatic hernia without obstruction or gangrene; K29.90 Gastroduodenitis, unspecified, without bleeding; K21.00 Gastro-esophageal reflux disease with esophagitis, without bleeding; F41.9 Anxiety disorder, unspecified; Z82.49 Family history of ischemic heart disease and other diseases of the circulatory system; Z83.3 Family history of diabetes mellitus; Z81.8 Family history of other mental and behavioral disorders; Z98.890 Other specified postprocedural states; Z79.899 Other long term (current) drug therapy; Z98.891 History of uterine scar from previous surgery; Z98.51 Tubal ligation status; Z90.49 Acquired absence of other specified parts of digestive tract; Z20.822 Contact with and (suspected) exposure to COVID-19
CPT/HCPCS: 36415; 43239; 80053; 81025; 84702; 85025; 85610; 85730; 88305; 88312; 88342; J1200; J2250; J3010; U0003; 99152

== ENCOUNTER → 2022-10-15 | Outpatient (CLI) | payer BC, MEDICAID ==
[~2022-10-15] MED LIST changes: -LIDOCAINE VISCOUS 2% 15ML UD ONE; -SODIUM CHLORIDE LOCK 10 ML ONE
[2022-10-15 10:34] LABS: Basophils # (auto) 0 10 ^3/uL (0-0.2); Eosinophils # (auto) 0.4 10 ^3/uL (0-0.8); Eosinophils % (auto) 4.4 % (0.0-7.0); Hemoglobin 11.8 g/dL (12.2-16.2); Lymphocytes # (auto) 2.6 10 ^3/uL (0.4-5.4); Mean Corpuscular Hemoglobin 22.1 pg (28.0-32.0); Mean Corpuscular Hgb Conc. 31.1 g/dL (32.0-36.0)
[2022-10-15 10:37] LABS: Basophils % (auto) 0.3 % (0.0-2.0); Hematocrit 37.9 % (36.0-46.0); Mean Corpuscular Volume 71.3 fL (80.0-100.0); Monocytes # (auto) 0.6 10 ^3/uL (0-1.3); Monocytes % (auto) 6.6 % (0.0-12.0); Neutrophils # (auto) 5.1 10 ^3/uL (1.6-8.6); Neutrophils % (auto) 58.7 % (37.0-80.0); Red Blood Cells 5.32 10^6/uL (4.0-5.20); Red Cell Distribution Width 15.3 % (11.8-14.3); White Blood Cell 8.6 10^3/uL (4.4-10.8)
[2022-10-15 10:38] LABS: Urine Bacteria FEW /hpf (None Seen); Urine Blood 2+ /uL (Negative); Urine Specific Gravity 1.022 (1.001-1.035); Urine WBC 2 /hpf (0 - 5)
[2022-10-15 11:08] LABS: Potassium 3.8 mmol/L (3.5-5.1)
[2022-10-15 11:17] LABS: Albumin 3.1 g/dL (3.4-5.0); BUN/Creatinine Ratio 12.8; Bilirubin, Total 0.6 mg/dL (0.2-1.0); Total Protein 7.6 g/dL (6.4-8.2)
== END | disposition home or self-care (01) ==
LOC: LAB 10:22
PROVIDERS: ATTEND Internal Medicine
DX: Z00.00 Encounter for general adult medical examination without abnormal findings (principal); E66.9 Obesity, unspecified; R13.10 Dysphagia, unspecified
CPT/HCPCS: 36415; 80053; 80061; 81001; 82306; 83036; 84443; 85025

== ENCOUNTER 2023-12-29 11:30 | Emergency (ER) | payer BC, MEDICAID ==
[~2023-12-29] VITALS: Ht 160 cm; Wt 95.4 kg
[2023-12-29 12:08] LABS: Basophils # (auto) 0 10 ^3/uL (0-0.2); Lymphocytes # (auto) 2.4 10 ^3/uL (0.4-5.4); Lymphocytes % (auto) 30.4 % (10.0-50.0); Neutrophils # (auto) 4.6 10 ^3/uL (1.6-8.6); Neutrophils % (auto) 57.7 % (37.0-80.0)
[2023-12-29 12:10] LABS: Basophils % (auto) 0.6 % (0.0-2.0); Eosinophils # (auto) 0.3 10 ^3/uL (0-0.8); Eosinophils % (auto) 3.3 % (0.0-7.0); Hemoglobin 9.9 g/dL (12.2-16.2); Mean Corpuscular Hemoglobin 18.9 pg (28.0-32.0); Mean Corpuscular Hgb Conc. 29.9 g/dL (32.0-36.0); Mean Corpuscular Volume 63.3 fL (80.0-100.0); Monocytes # (auto) 0.6 10 ^3/uL (0-1.3); Nucleated Red Blood Cells % 0.1 %; Red Blood Cells 5.22 10^6/uL (4.0-5.20); Red Cell Distribution Width 17.8 % (11.8-14.3)
[2023-12-29 12:21] LABS: Chloride 108 mmol/L (98-107); Potassium 3.8 mmol/L (3.5-5.1); Sodium 140 mmol/L (136-145)
[2023-12-29 12:22] LABS: Anion Gap 7 (5-15); Carbon Dioxide 25 mmol/L (20-30)
[2023-12-29 12:25] VITALS: BP 144/89; PULSE 103; RESP 18; TEMP 97.7; O2SAT 97
[2023-12-29 12:27] LABS: BUN/Creatinine Ratio 10.6 (10.0-20.0); Blood Urea Nitrogen 9 mg/dL (9-23); Glucose 84 mg/dL (74-106)
[2023-12-29 13:57] LABS: Urine Bacteria FEW /hpf (None Seen); Urine Blood Negative /uL (Negative); Urine Clarity Clear (Clear); Urine Protein, UAD Negative (Negative); Urine Specific Gravity 1.008 (1.001-1.035); Urine Urobilinogen Normal (Negative); Urine WBC 1 /hpf (0 - 5)
[2023-12-29 13:58] LABS: Urine Color Straw (Yellow)
== END 2023-12-29 13:39 | disposition home or self-care (01) ==
LOC: ER 11:30 → EEVIPCON 11:30 → ER 13:39
DX: N83.201 Unspecified ovarian cyst, right side (principal); R10.2 Pelvic and perineal pain; K21.9 Gastro-esophageal reflux disease without esophagitis; F32.9 Major depressive disorder, single episode, unspecified; Z86.73 Personal history of transient ischemic attack (TIA), and cerebral infarction without residual deficits; Z98.890 Other specified postprocedural states; Z79.899 Other long term (current) drug therapy
CPT/HCPCS: 36415; 76856; 80048; 81001; 84702; 85025

== ENCOUNTER 2025-05-15 11:25 | Emergency (ER) | payer BC, MEDICAID ==
[~2025-05-15] VITALS: Ht 160 cm; Wt 99.3 kg
--- NOTE | 2025-05-15 12:08 | ECG ---
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
--- NOTE | 2025-05-15 12:15 | ED.PDOC ---
DIRECTOR ELECTRONICS HPI Comments 39y F who presents to the ED for chief complaint of vaginal bleeding. Pt states she has been having vaginal bleeding for the past 4 days. Pt states 1x days prior she has been passing large clots the size of her fist with associated smaller clots. Pt states she has been using tampons and pads but states she still has been bleeding through them. Pt states she woke up today, and states "it felt like I got hit by truck." Pt states she started to have dizziness, palpitations, chills and headache and came to the ED for further evaluation. Pt states she is not currently and had tubal ligation 2x years prior. Pt states she does have history of heavy periods and anemia but denies any past blood transfusion. Pt states she did see PCP and got referral for OB appt that is upcoming. Pt otherwise has noted vitals including; heart rate 141, BP 142/97 , RR 17 and 02 sat of 98% on room air. Pt is alert and oriented x 4 and no noted changes in gait, vision or speech is noted. Chief Complaint: Vaginal Bleed Time Seen by MD: 12:00 Reviewed Notes: Medications, Allergies Allergies: Coded Allergies: NO KNOWN ALLERGIES (Unverified , 01/14/20) Home Meds Active Scripts Cephalexin Monohydrate (Cephalexin) 500 Mg Cap, 1 CAP PO QID for 10 Days, #40 CAP Prov:MARGOT BONNER MD 05/15/25 Medroxyprogesterone Acetate (PROVERA) 5 Mg Tab, 2 TAB PO DAILY for 10 Days, #20 TAB 11 Refills Prov:MARGOT BONNER MD 05/15/25 Reported Medications Pantoprazole Sodium (PANTOPRAZOLE SODIUM) 40 Mg Inj, 40 MG PO DAILY, INJ 12/01/21 Sertraline Hcl (Zoloft) 25 Mg Tab, 25 MG PO, TAB 05/19/21 Information Source: Patient Mode of Arrival: Ambulatory Brought in by: self Past Medical History PAST MEDICAL HISTORY: Anemia, Depression, GERD Surgical History: Cholecystectomy CAREER TECHNICAL SUPERVISOR History: No Pertinent CAREER TECHNICAL SUPERVISOR History Family History Family History: Reviewed,noncontributory to illness Social History Smoker: Non-Smoker Alcohol: Occasionally Drugs: Denies Drug Use Lives In: Home Constitutional: reports: chills, fatigue, weakness; denies: diaphoresis, fever, malaise, sweats, others EENTM: denies: blurred vision, double vision, ear bleeding, ear discharge, ear drainage, ear pain, ear ringing, eye pain, eye redness, hearing loss, mouth pain, mouth swelling, nasal discharge, nose bleeding, nose congestion, nose pain, photophobia, tearing, throat pain, throat swelling, voice changes, others Respiratory: denies: cough, hemoptysis, orthopnea, SOB at rest, shortness of breath, SOB with excertion, stridor, wheezing, others Cardiovascular: denies: chest pain, dizzy spells, diaphoresis, Dyspnea on exertion, edema, irregular heart beat, left arm pain, lightheadedness, palpitations, PND, syncope, others Gastrointestinal: denies: abdomen distended, abdominal pain, blood streaked bowels, constipated, diarrhea, dysphagia, difficulty swallowing, hematemesis, melena, nausea, poor appetite, poor fluid intake, rectal bleeding, rectal pain, vomiting, others Genitourinary: denies: abnormal vagina bleeding, burning, dyspareunia, dysuria, flank pain, frequency, hematuria, incontinence, pain, , vagina discharge, urgency, others Neurological: reports: dizziness; denies: fainting, headache, left sided numbness, left sided weakness, numbness, paresthesia, pre-existing deficit, right sided numbness, right sided weakness, seizure, speech problems, tingling, tremors, weakness, others Musculoskeletal: denies: back pain, gout, joint pain, joint swelling, muscle pain, muscle stiffness, neck pain, others Integumetry: denies: bruises, change in color, change in hair/nails, dryness, laceration, lesions, lumps, rash, wounds, others Allergic/Immunocompromised: denies: Difficulty Healing, Frequent Infections, Hives, Itching, others Hematologic/Lymphatic: denies: anemia, blood clots, easy bleeding, easy bruising, swollen glands, others Endocrine: denies: excessive hunger, excessive sweating, excessive thirst, excessive urination, flushing, intolerance to cold, intolerance to heat, unexplained weight gain, unexplained weight loss, others Psychiatric: denies: anxiety, bipolar disorder, depression, hopeless, panic disorder, schizophrenia, sleepless, suicidal, others All Other Systems: Reviewed and Negative Physical Exam General Appearance: Mild Distress HEENT: Other (Pupils and face symmetric. Moist mucous membranes.) Neck: Full Range of Motion, Normal Inspection Respiratory: Lungs Clear, No Accessory Muscle Use, No Respiratory Distress, Normal Breath Sounds Cardiovascular: No Edema, No JVD, Tachycardia Breast Exam: Deferred Gastrointestinal: Non Tender, Soft Genitalia: Deferred Pelvic: Deferred Rectal: Deferred Extremities: Normal inspection, Normal range of motion, Non-tender, No pedal edema Neurologic: Alert (Oriented x4), Normal Affect, Normal Mood, Other (Ambulatory) Cerebellar Function: NOT DONE Reflexes: NOT DONE Skin: Dry, Pallor, Warm Lymphatic: NOT DONE Was a procedure done? Was a procedure done?: No Differential Diagnosis (CAREER TECHNICAL SUPERVISOR) Vaginal Bleeding: Blood Loss Anemia, Menorrhagia, Menstrual Bleeding, Myomatous Uterus, Precipitous Hct, UTI X-Ray, Labs, Meds, VS Vital Signs Date Time Temp Pulse Resp B/P (MAP) Pulse Ox O2 Delivery O2 Flow Rate FiO2 05/15/25 15:52 98.3 72 16 131/73 (92) 97 98.3 05/15/25 14:00 83 16 135/83 (100) 97 05/15/25 13:05 97 Room Air* 0 21 05/15/25 12:56 110 16 96 Room Air* 0 21 05/15/25 12:00 98.3 119 22 129/76 (93) 97 98.3 05/15/25 11:59 100 05/15/25 11:44 97.6 128 17 142/97 (112) 98 97.6 Lab Test 05/15/25 15:36 05/15/25 12:31 05/15/25 12:04 Range/Units Urine Color Light-yellow Yellow Urine Clarity Clear Clear Urine pH 6.5 5.0-9.0 Urine Specific [place] 1.013 1.001-1.035 Urine Protein Negative Negative Urine Ketones Negative Negative Urine Blood 1+ H Negative /uL Urine Nitrite Negative Negative Urine Bilirubin Negative Negative Urine Urobilinogen Normal Negative mg/dL Urine Leukocyte Esterase Negative Negative /uL Urine RBC 1 0 - 4 /hpf Urine Microscopic WBC < 1 0-5 /HPF Urine Squamous Epithelial Cells Few <5 /hpf Urine Bacteria Few H None Seen /hpf Urine Mucus Few None Seen Urine Glucose Normal Normal mg/dL Urine Test Negative Negative POC Glucose 132 H 70-106 mg/dl White Blood Count 6.5 4.4-10.8 10^3/uL Red Blood Count 5.02 4.0-5.20 10^6/uL Hemoglobin 8.9 L 12.2-16.2 g/dL Hematocrit 30.4 L 36.0-46.0 % Mean Corpuscular Volume 60.5 L 80.0-100.0 fL Mean Corpuscular Hemoglobin 17.7 L 28.0-32.0 pg Mean Corpuscular Hemoglobin Concent 29.2 L 32.0-36.0 g/dL Red Cell Distribution Width 18.9 H 11.8-14.3 % Platelet Count 318 140-450 10^3/uL Mean Platelet Volume 7.6 6.9-10.8 fL Neutrophils (%) (Auto) 58.5 37.0-80.0 % Lymphocytes (%) (Auto) 28.0 10.0-50.0 % Monocytes (%) (Auto) 7.2 0.0-12.0 % Eosinophils (%) (Auto) 5.6 0.0-7.0 % Basophils (%) (Auto) 0.7 0.0-2.0 % Neutrophils # (Auto) 3.8 1.6-8.6 10 ^3/uL Lymphocytes # (Auto) 1.8 0.4-5.4 10 ^3/uL Monocytes # (Auto) 0.5 0-1.3 10 ^3/uL Eosinophils # (Auto) 0.4 0-0.8 10 ^3/uL Basophils # (Auto) 0 0-0.2 10 ^3/uL Nucleated Red Blood Cells 0.1 % Prothrombin Time 10.4 9.3-11.8 sec Prothrombin Time INR 0.98 0.9-1.15 Activated Partial Thromboplast Time 24.1 L 24.5-34.5 SEC Sodium Level 142 136-145 mmol/L Potassium Level 3.6 3.5-5.1 mmol/L Chloride Level 108 H 98-107 mmol/L Carbon Dioxide Level 26 20-31 mmol/L Anion Gap 8 5-15 Blood Urea Nitrogen 9 9-23 mg/dL Creatinine 0.85 0.550-1.02 mg/dL Glomerular Filtration Rate Calc 90 >90 mL/min BUN/Creatinine Ratio 10.6 10.0-20.0 Serum Glucose 116 H 74-106 mg/dL Calcium Level 9.0 8.7-10.4 mg/dL Current Medications Medications (Trade) Dose Ordered Sig/Margarita Route Start Time Stop Time Status Last Admin Sodium Chloride 2,000 ml @ 1,000 mls/hr Q2H ONCE IV 05/15/25 11:45 05/15/25 13:44 DC 05/15/25 12:29 Acetaminophen (Tylenol Tablet Or Capsule) 1,000 mg ONCE ONCE PO 05/15/25 12:00 05/15/25 12:01 DC 05/15/25 12:26 [place] [address] Ph: [phone] DIAGNOSTIC IMAGING Diagnostic Imaging Report : [id number] Signed PATIENT: ALEX CHAUDHARY MACCT: [id number] UNIT: [id number] : 1985 LOC: ER ROOM / BED: / AGE / SEX: 39 / F ADM STATUS: REG ER SERVICE 1154 ORDERING PHYSICIAN: MARGOT BONNER MD PROCEDURE(s): PELUS - PELVIC REASON: vaginal bleeding ORDER NUMBER(s): [id number], ACCESSION NUMBER(s): [id number] INDICATION: vaginal bleeding TECHNIQUE: Multiple real-time grayscale transabdominal sonographic images along with color and duplex Doppler of the uterus and ovaries were obtained. COMPARISON: US PELVIC on DOS: 12/29/23 FINDINGS: The uterus measures 10.5 x 6.0 x 4.4 cm. The uterus is heterogeneous. There is a intrauterine mass of the uterine fundus measuring 2 cm. The endometrial stripe measures 0.6 cm. The right ovary measures 3.7 x 1.9 x 3.1 cm. The left ovary measures 2.9 x 2.0 x 2.1 cm. Subsequent color and duplex Doppler interrogation of the ovaries demonstrated symmetric vascular flow to both ovaries, though this does not exclude the po ssibility of torsion due to the dual blood supply. IMPRESSION: Heterogeneous uterus with a intrauterine mass of the uterine fundus measuring 2 cm. ATED BY: ISABELA GALLEGOS MD DICTATED DATE/TIME: 05/15/25 1251 SIGNED BY: ISABELA GALLEGOS MD SIGNED DATE/TIME: 05/15/25 8499 CC: X-Ray, Labs, Meds, VS Comment 39-year-old female with a history of anemia, depression, GERD and heavy menses presenting with heavy vaginal bleeding, fatigue, headache and malaise Vitals remarkable for heart rate 128, BP 142/97 Exam remarkable for tachycardia Rhythm strip independently interpreted by me: Sinus tach, rate 128, no ectopy. Pelvic ultrasound: IMPRESSION: Heterogeneous uterus with a intrauterine mass of the uterine fundus measuring 2 cm. CBC remarkable for hemoglobin 8.9, hematocrit 30.4, metabolic panel and coag panel unremarkable, UA pending Patient treated with the following in the ED: 2 L 0.9 normal saline IV bolus, Tylenol 1 g p.o. On re-evaluation, patient is no longer tachycardic. Other vitals were stable. She states she feels as though the bleeding has subsided. Hospitalization was considered for hemoglobin trend and inpatient shank pinner evaluation, however patient stated she did not want to be hospitalized and would prefer to go home and rest. She states she has a referral for a divorce attorney with whom she would prefer to follow-up as an outpatient. Patient appears stable for discharge at this time with a prescription for Provera and close follow-up with her divorce attorney. I will also cover the patient for possible UTI with Keflex. Time of 1ST Reevaluation: 15:00 Reevaluation 1ST: Improved Patient Education/Counseling: Diagnosis, Treatment, Need For Follow Up Family Education/Counseling: No Family Present Departure 1 Departure Time of Disposition: 15:00 Impression: Primary Impression: Vaginal bleeding Additional Impressions: Anemia Qualified Codes: D64.9 - Anemia, unspecified Mass of uterus determined by ultrasound Disposition: 01 HOME / SELF CARE / HOMELESS Condition: Stable Referrals: BETO FLOWER DO Additional Instructions: Blood tests showed anemia, however you did not require a blood transfusion. Your ultrasound showed a 2 cm intrauterine mass, possibly a fibroid. Please see the report below. I have prescribed medication to help stop the bleeding. I have also prescribed antibiotics to cover a possible urinary tract infection. Follow-up with your OBGYN as soon as possible for further evaluation of your bleeding. Alternatively, follow-up directly with Dr. Flower. Return to ER for persistent or worsening symptoms. [address] [address] Ph: [phone] DIAGNOSTIC IMAGING Diagnostic Imaging Report : [id number] Signed PATIENT: ALEX CHAUDHARY ACCT: [id number] UNIT: [id number] : 1985 LOC: ER ROOM / BED: / AGE / SEX: 39 / F ADM STATUS: REG ER SERVICE 1154 ORDERING PHYSICIAN: MARGOT BONNER MD PROCEDURE(s): PELUS - PELVIC REASON: vaginal bleeding ORDER NUMBER(s): [id number], ACCESSION NUMBER(s): [id number] INDICATION: vaginal bleeding TECHNIQUE: Multiple real-time grayscale transabdominal sonographic images along with color and duplex Doppler of the uterus and ovaries were obtained. COMPARISON: US PELVIC on DOS: 12/29/23 FINDINGS: The uterus measures 10.5 x 6.0 x 4.4 cm. The uterus is heterogeneous. There is a intrauterine mass of the uterine fundus measuring 2 cm. The endometrial stripe measures 0.6 cm. The right ovary measures 3.7 x 1.9 x 3.1 cm. The left ovary measures 2.9 x 2.0 x 2.1 cm. Subsequent color and duplex Doppler interrogation of the ovaries demonstrated symmetric vascular flow to both ovaries, though this does not exclude the possibility of torsion due to the dual blood supply. IMPRESSION: Heterogeneous uterus with a intrauterine mass of the uterine fundus measuring 2 cm. ATED BY: ISABELA GALLEGOS MD DICTATED DATE/TIME: 05/15/25 125 SIGNED BY: ISABELA GALLEGOS MD SIGNED DATE/TIME: 05/15/25 1251 CC: e-Prescriptions Cephalexin Monohydrate (Cephalexin) 500 Mg Cap 1 CAP PO QID for 10 Days, #40 CAP Prov: MARGOT BONNER MD 05/15/25 Medroxyprogesterone Acetate (PROVERA) 5 Mg Tab 2 TAB PO DAILY for 10 Days, #20 TAB 11 Refills Prov: MARGOT BONNER MD 05/15/25 Discharged With: Relative Critical Care Note Critical Care Time?: No Stability Stability form required: No Heart Score Heart Score: Heart Score Response (Comments) Value History N/A 0 EKG N/A 0 Age N/A 0 Risk Factors N/A 0 Troponin N/A 0 Total 0 I personally scribed for MARGOT BONNER MD ([facility] on 05/15/25 at 12:15. Electronically submitted by Capo Diehl ([facility]). I personally scribed for MARGOT BONNER MD ([facility]) on 05/15/25 at 12:18. Electronically submitted by Capo Diehl ([facility] I personally scribed for MARGOT BONNER MD ([facility]) on 05/15/25 at 13:51. Electronically submitted by Capo Diehl ([facility] MARGOT BONNER MD May 15, 2025 12:15
[2025-05-15] MEDS: ACETAMINOPHEN 500 MG TAB or CAP PO ONE (12:26)
[2025-05-15] MEDS: SODIUM CHLORIDE 0.9% 2,000 ML IV ONE (12:29)
[2025-05-15 12:36] LABS: Hematocrit 30.4 % (36.0-46.0); Hemoglobin 8.9 g/dL (12.2-16.2); INR 0.98 (0.9-1.15); Mean Corpuscular Hemoglobin 17.7 pg (28.0-32.0); Mean Corpuscular Volume 60.5 fL (80.0-100.0); Nucleated Red Blood Cells % 0.1 %; Partial Thromboplastin Time 24.1 SEC (24.5-34.5); Potassium 3.6 mmol/L (3.5-5.1); Prothrombin Time 10.4 sec (9.3-11.8); Sodium 142 mmol/L (136-145)
[2025-05-15 12:37] LABS: Anion Gap 8 (5-15); Calcium 9.0 mg/dL (8.7-10.4); Carbon Dioxide 26 mmol/L (20-31)
[2025-05-15 12:38] LABS: Chloride 108 mmol/L (98-107)
[2025-05-15 12:42] LABS: BUN/Creatinine Ratio 10.6 (10.0-20.0); Blood Urea Nitrogen 9 mg/dL (9-23); Glucose 116 mg/dL (74-106)
--- NOTE | 2025-05-15 12:53 | DVH ---
INDICATION: vaginal bleeding TECHNIQUE: Multiple real-time grayscale transabdominal sonographic images along with color and duplex Doppler of the uterus and ovaries were obtained. COMPARISON: US PELVIC on DOS: 12/29/23 FINDINGS: The uterus measures 10.5 x 6.0 x 4.4 cm. The uterus is heterogeneous. There is a intrauteri ne mass of the uterine fundus measuring 2 cm. The endometrial stripe measures 0.6 cm. The right ovary measures 3.7 x 1.9 x 3.1 cm. The left ovary measures 2.9 x 2.0 x 2.1 cm. Subsequent color and duplex Doppler interrogation of the ovaries demonstrated symmetric vascular flow to both ovaries, though this does not exclude the possibility of torsion due to the dual blood suppl y. IMPRESSION: Heterogeneous uterus with a intrauterine mass of the uterine fundus measuring 2 cm.
[2025-05-15 12:56] VITALS: PULSE 110; RESP 16; O2SAT 96
[2025-05-15] MEDS ORDERED: CEPH500C PO (15:35)
[2025-05-15] MEDS ORDERED: MEDR5TAB28 PO (15:35)
[2025-05-15 15:52] VITALS: BP 131/73; PULSE 72; RESP 16; TEMP 98.3; O2SAT 97
[2025-05-15 15:57] LABS: Urine Protein, UAD Negative (Negative)
== END 2025-05-15 15:53 | disposition home or self-care (01) ==
LOC: EEVIPCON 11:25 → ER 11:25
DX: D64.9 Anemia, unspecified (principal); N93.9 Abnormal uterine and vaginal bleeding, unspecified; N85.8 Other specified noninflammatory disorders of uterus; F32.A Depression, unspecified; Z90.49 Acquired absence of other specified parts of digestive tract; Z79.899 Other long term (current) drug therapy; Z98.51 Tubal ligation status; Z86.2 Personal history of diseases of the blood and blood-forming organs and certain disorders involving the immune mechanism
CPT/HCPCS: 36415; 76856; 80048; 81001; 81025; 82947; 85025; 85610; 85730; 86850; 86900; 86901; 93005; 96360; 99284; J7030; 82962

== ENCOUNTER 2025-06-03 13:10 | Outpatient (CLI) | payer BC, MEDICAID ==
[~2025-06-03 13:10] MED LIST changes: +CEPH500C PO; +MEDR5TAB28 PO
[2025-06-03 13:24] LABS: Urine Protein, UAD Negative (Negative)
== END 2025-06-03 17:00 | disposition home or self-care (01) ==
LOC: LAB 13:10
PROVIDERS: ATTEND Nurse Practitioner
DX: N39.0 Urinary tract infection, site not specified (principal)
CPT/HCPCS: 81001; 87086

== ENCOUNTER → 2025-06-18 | Outpatient (CLI) | payer BC, MEDICAID ==
[2025-06-18 09:12] LABS: Urine Protein, UAD Negative (Negative)
[2025-06-18 09:14] LABS: Hemoglobin 9.3 g/dL (12.2-16.2)
[2025-06-18 09:16] LABS: Hematocrit 30.7 % (36.0-46.0); Mean Corpuscular Hemoglobin 18.4 pg (28.0-32.0); Mean Corpuscular Volume 60.7 fL (80.0-100.0); Nucleated Red Blood Cells % 0.0 %
[2025-06-18 09:26] LABS: Iron 25.0 ug/dL (50-170)
[2025-06-18 09:27] LABS: Alanine Aminotransferase 22 U/L (7-40); Albumin 4.3 g/dL (3.2-4.8); Alkaline Phosphatase 112 U/L (46-116); Anion Gap 11 (5-15); BUN/Creatinine Ratio 9.2 (10.0-20.0); Bilirubin, Total 0.4 mg/dL (0.2-1.0); Calcium 8.9 mg/dL (8.7-10.4); Carbon Dioxide 24 mmol/L (20-31); Chloride 106 mmol/L (98-107); Cholesterol 164 mg/dL (< 200); Glucose 81 mg/dL (74-106); Magnesium 2.0 mg/dL (1.6-2.6); Potassium 3.9 mmol/L (3.5-5.1); Sodium 141 mmol/L (136-145); Total Protein 7.3 g/dL (5.7-8.2); Triglycerides 136 mg/dL (< 150)
[2025-06-18 09:31] LABS: Free T3 2.92 pg/mL (2.3-4.2)
[2025-06-18 09:32] LABS: Ferritin 2.0 ng/mL (10-291); Free T4 (Free Thyroxine) 1.09 ng/dL (0.89-1.76)
[2025-06-18 09:38] LABS: Blood Urea Nitrogen 8 mg/dL (9-23); HDL Cholesterol 37 mg/dL (40-59)
[2025-06-18 09:39] LABS: Total Iron Binding Capacity 439.0 ug/dL (250-425)
[2025-06-18 09:45] LABS: Ovalocytes FEW
[2025-06-18 09:59] LABS: Uric Acid 5.4 mg/dL (3.1-7.8)
== END | disposition home or self-care (01) ==
LOC: LAB 08:39
PROVIDERS: ATTEND Obstetrics & Gynecology
DX: N39.9 Disorder of urinary system, unspecified (principal)
CPT/HCPCS: 36415; 80053; 80061; 80198; 81001; 82306; 82607; 82728; 83540; 83550; 83735; 84403; 84439; 84443; 84480; 84481; 84550; 85025; 87086

== ENCOUNTER 2025-07-16 11:22 | Outpatient (CLI) | payer BC, MEDICAID ==
[2025-07-16] MEDS ORDERED: PANT40TA2 PO (11:24)
[2025-07-16] MEDS ORDERED: SUCR1SUS26 PO (11:24)
[2025-07-17 08:07] LABS: Immunoglobulin A 271 mg/dL (87-352)
== END 2025-07-16 17:00 | disposition home or self-care (01) ==
LOC: LAB 11:22
PROVIDERS: ATTEND Internal Medicine Gastroenterology
DX: K21.9 Gastro-esophageal reflux disease without esophagitis (principal); R19.7 Diarrhea, unspecified
CPT/HCPCS: 82784; 83516; 86003; 86255

== ENCOUNTER 2025-09-05 10:23 | Emergency (ER) | payer BC, MEDICAID ==
[~2025-09-05] VITALS: Ht 160 cm; Wt 98.0 kg
[~2025-09-05 10:23] MED LIST changes: +PANT40TA2 PO; +SUCR1SUS26 PO
--- NOTE | 2025-09-05 10:37 | ED.PDOC ---
HPI Comments 39 y/o F, presents to the ED for CC of chest pain. Patient states, she has been experiencing left-sided chest pain that radiates to her back sudden onset, 0730 this morning (09/05/25). Patient reports, that she does have PMHx of anxiety and is unsure if symptoms maybe related. At this time patient describes pain to be 6/10 on the pain scale and "dull" in nature. Patient denies palpitations, nausea, vomiting, headache, or shortness of breath. No other symptoms or modifying factors are present at this time. Chief Complaint: Chest Pain Time Seen by MD: 10:30 Primary Care Provider: MINDA Saba Notes: Nurses Notes, Medications, Allergies Allergies: Coded Allergies: NO KNOWN ALLERGIES (Unverified , 01/14/20) Home Meds Active Scripts Sucralfate (CARAFATE SUSP) 1 Gm/10 Ml Ss, 10 ML PO QID for 30 Days, #1200 ML 3 Refills Prov:FLORENTINO WAYNE RESIDENT 07/16/25 Pantoprazole Sodium Sesquihydr (Protonix) 40 Mg Tab, 40 MG PO BID for 30 Days, #60 TAB 3 Refills Prov:FLORENTINO WAYNE RESIDENT 07/16/25 Cephalexin Monohydrate (Cephalexin) 500 Mg Cap, 1 CAP PO QID for 10 Days, #40 CAP Prov:MARGOT BONNER MD 05/15/25 Medroxyprogesterone Acetate (PROVERA) 5 Mg Tab, 2 TAB PO DAILY for 10 Days, #20 TAB 11 Refills Prov:MARGOT BONNER MD 05/15/25 Reported Medications Pantoprazole Sodium (PANTOPRAZOLE SODIUM) 40 Mg Inj, 40 MG PO DAILY, INJ 12/01/21 Sertraline Hcl (Zoloft) 25 Mg Tab, 25 MG PO, TAB 05/19/21 Information Source: Patient Mode of Arrival: Ambulatory Severity: Moderate Timing: Hours Duration: Since onset Prehospital treatment: None Location: Chest (L) Radiation: Neck Quality: Other (dull) Onset: At Rest Cardiac Risk Factors: None PE Risk Factors: None History of: None Modifying Factors: Nothing Associated Signs and Symptoms: None Past Medical History PAST MEDICAL HISTORY: Anemia, Anxiety, Depression, GERD Surgical History: Cholecystectomy, , Tubal Ligation COFFEE SAMPLER History: No Pertinent COFFEE SAMPLER History Family History Family History: Reviewed,noncontributory to illness Social History Smoker: Non-Smoker Alcohol: Occasionally Drugs: Denies Drug Use Lives In: Home Constitutional: denies: chills, diaphoresis, fatigue, fever, malaise, sweats, weakness, others EENTM: denies: blurred vision, double vision, ear bleeding, ear discharge, ear drainage, ear pain, ear ringing, eye pain, eye redness, hearing loss, mouth pain, mouth swelling, nasal discharge, nose bleeding, nose congestion, nose pain, photophobia, tearing, throat pain, throat swelling, voice changes, others Respiratory: denies: cough, hemoptysis, orthopnea, SOB at rest, shortness of breath, SOB with excertion, stridor, wheezing, others Cardiovascular: reports: chest pain; denies: dizzy spells, diaphoresis, Dyspnea on exertion, edema, irregular heart beat, left arm pain, lightheadedness, palpitations, PND, syncope, others Gastrointestinal: denies: abdomen distended, abdominal pain, blood streaked bowels, constipated, diarrhea, dysphagia, difficulty swallowing, hematemesis, melena, nausea, poor appetite, poor fluid intake, rectal bleeding, rectal pain, vomiting, others Genitourinary: denies: abnormal vagina bleeding, burning, dyspareunia, dysuria, flank pain, frequency, hematuria, incontinence, pain, , vagina discharge, urgency, others Neurological: denies: dizziness, fainting, headache, left sided numbness, left sided weakness, numbness, paresthesia, pre-existing deficit, right sided numbness, right sided weakness, seizure, speech problems, tingling, tremors, weakness, others Musculoskeletal: denies: back pain, gout, joint pain, joint swelling, muscle pain, muscle stiffness, neck pain, others Integumetry: denies: bruises, change in color, change in hair/nails, dryness, laceration, lesions, lumps, rash, wounds, others Allergic/Immunocompromised: denies: Difficulty Healing, Frequent Infections, Hives, Itching, others Hematologic/Lymphatic: denies: anemia, blood clots, easy bleeding, easy bruising, swollen glands, others Endocrine: denies: excessive hunger, excessive sweating, excessive thirst, excessive urination, flushing, intolerance to cold, intolerance to heat, unexplained weight gain, unexplained weight loss, others Psychiatric: denies: anxiety, bipolar disorder, depression, hopeless, panic disorder, schizophrenia, sleepless, suicidal, others All Other Systems: Reviewed and Negative Physical Exam General Appearance: No Apparent Distress HEENT: Normal ENT Inspection, Pharynx Normal, TMs Normal Neck: Full Range of Motion, Non-Tender, Normal, Normal Inspection Respiratory: Chest Non-Tender, Lungs Clear, No Accessory Muscle Use, No Respiratory Distress, Normal Breath Sounds Cardiovascular: No Edema, No JVD, No Murmur, No Gallop, Tachycardia Breast Exam: Deferred Gastrointestinal: No Organomegaly, Non Tender, No Pulsatile Mass, Normal Bowel Sounds, Soft Genitalia: Deferred Pelvic: Deferred Rectal: Deferred Extremities: No calf tenderness, Normal capillary refill, Normal inspection, Normal range of motion, Non-tender, No pedal edema Musculoskeletal : Apperance: Normal Neurologic: Alert, hydrotel operator II-XII nml as Tested, No Motor Deficits, Normal Affect, Normal Mood, No Sensory Deficits Cerebellar Function: Normal Reflexes: Normal Skin: Dry, Normal Color, Warm Lymphatic: No Adenopathy EKG EKG : Pulse Rate (adult): 101 [place]: Normal Cardiac Rhythm: ST Block: None Hypertrophy: None ST: Normal Was a procedure done? Was a procedure done?: No CP Differential Dx Differential Diagnosis: Angina, Anxiety / Panic Attack Differential Diagnosis: HTN Essential, HTN Accelerated Differential Diagnosis: Chest Wall Pain, Costochondritis, Esophageal reflux/spasm, Gastritis X-Ray, Labs, Meds, VS Vital Signs Date Time Temp Pulse Resp B/P (MAP) Pulse Ox O2 Delivery O2 Flow Rate FiO2 09/05/25 11:22 86 09/05/25 10:37 101 09/05/25 10:29 97.7 93 20 136/83 100 97.7 09/05/25 10:28 101 Lab Test 09/05/25 11:30 09/05/25 10:37 Range/Units Troponin I High Sensitivity < 3 L < 3 L </=34 ng/L White Blood Count 8.2 4.4-10.8 10^3/uL Red Blood Count 5.15 4.0-5.20 10^6/uL Hemoglobin 9.4 L 12.2-16.2 g/dL Hematocrit 31.4 L 36.0-46.0 % Mean Corpuscular Volume 61.0 L 80.0-100.0 fL Mean Corpuscular Hemoglobin 18.2 L 28.0-32.0 pg Mean Corpuscular Hemoglobin Concent 29.8 L 32.0-36.0 g/dL Red Cell Distribution Width 18.3 H 11.8-14.3 % Platelet Count 329 140-450 10^3/uL Mean Platelet Volume 8.2 6.9-10.8 fL Neutrophils (%) (Auto) 57.7 37.0-80.0 % Lymphocytes (%) (Auto) 30.1 10.0-50.0 % Monocytes (%) (Auto) 8.3 0.0-12.0 % Eosinophils (%) (Auto) 3.4 0.0-7.0 % Basophils (%) (Auto) 0.5 0.0-2.0 % Neutrophils # (Auto) 4.7 1.6-8.6 10 ^3/uL Lymphocytes # (Auto) 2.5 0.4-5.4 10 ^3/uL Monocytes # (Auto) 0.7 0-1.3 10 ^3/uL Eosinophils # (Auto) 0.3 0-0.8 10 ^3/uL Basophils # (Auto) 0 0-0.2 10 ^3/uL Nucleated Red Blood Cells 0.0 % Platelet Estimate Adequate Hypochromasia (manual) Slight Microcytosis Moderate Ovalocytes Few D-Dimer, Quantitative 1.24 H 0.0-0.49 mg/L FEU Sodium Level 142 136-145 mmol/L Potassium Level 3.7 3.5-5.1 mmol/L Chloride Level 106 98-107 mmol/L Carbon Dioxide Level 26 20-31 mmol/L Anion Gap 10 5-15 Blood Urea Nitrogen 6 L 9-23 mg/dL Creatinine 0.84 0.550-1.02 mg/dL Glomerular Filtration Rate Calc 91 >90 mL/min BUN/Creatinine Ratio 7.1 L 10.0-20.0 Serum Glucose 72 L 74-106 mg/dL Calcium Level 8.9 8.7-10.4 mg/dL CXR: IMPRESSION: No acute cardiopulmonary disease. CT ANGIO: IMPRESSION: No evidence for large pulmonary embolism. No pulmonary airspace consolidation. Splenomegaly. Distal esophageal wall thickening with small paraesophageal lymph nodes. Correlate for esophagitis and other etiologies. Recommend GI consultation to evaluate.5 Other findings as described. The patient's CBC shows anemia with a hemoglobin of 9.4 and hematocrit of 31 The troponin level x2 is negative The D-dimer was 1.24 At this time the patient is being discharged and will follow up with the primary care doctor The patient will return to the emergency department's the condition worsens. The patient understands and agrees with the management. Images Reviewed?: Images reviewed and evaluated by me Time of 1ST Reevaluation: 11:00 Reevaluation 1ST: Unchanged Patient Education/Counseling: Diagnosis, Treatment, Prognosis, Need For Follow Up Family Education/Counseling: No Family Present SEPSIS Sepsis Screen Physician Orders Chest Two Views Routine (09/05/25 10:32) Urinalysis (09/05/25 10:32) Electrocardigram (09/05/25 14:24) Heplock Iv (09/05/25 ) Ct Angio Chest Contrast (09/05/25 11:44) Vital Signs Date Time Temp Pulse Resp B/P (MAP) Pulse Ox O2 Delivery O2 Flow Rate FiO2 09/05/25 11:22 86 09/05/25 10:37 101 09/05/25 10:29 97.7 93 20 136/83 100 97.7 09/05/25 10:28 101 Laboratory Tests Test 09/05/25 10:37 White Blood Count 8.2 10^3/uL (4.4-10.8) Departure 1 Departure Time of Disposition: 13:45 Impression: Primary Impression: Anemia Qualified Codes: D64.9 - Anemia, unspecified Additional Impression: Atypical chest pain Disposition: 01 HOME / SELF CARE / HOMELESS Condition: Fair Discharged With: Self Critical Care Note Critical Care Time?: No Stability Stability form required: No Heart Score Heart Score: Heart Score Response (Comments) Value History Slightly Suspicious 0 EKG Normal 0 Age <45 0 Risk Factors 1 or 2 risk factors 1 Troponin Normal limit 0 Total 1 I personally scribed for TOBY CASTLE MD ([email or web address]) on 09/05/25 at 10:37. Electronically submitted by Bhavana Willard ([email or web address]). I personally scribed for TOBY CASTLE MD ([email or web address]) on 09/05/25 at 12:35. Electronically submitted by Bhavana Willard ([email or web address]). I personally scribed for TOBY CASTLE MD ([email or web address]) on 09/05/25 at 12:35. Electronically submitted by Bhavana Willard ([email or web address]). I personally scribed for TOBY CASTLE MD ([email or web address]) on 09/05/25 at 13:32. Electronically submitted by Bhavana Willard ([email or web address]). TOBY CASTLE MD Sep 05, 2025 10:37
--- NOTE | 2025-09-05 11:21 | DVH ---
XY CHEST TWO VIEWS ROUTINE CLINICAL HISTORY: cp COMPARISON: None TECHNIQUE: Frontal and lateral view of the chest was obtained FINDINGS: Lines and Tubes: None Lungs: No focal consolidation. Pleura: No effusion. No pneumothorax. Cardiomediastinal contours: Unremarkable Bones: No acute osseous abnormality. IMPRESSION: No acute cardiopulmonary disease.
--- NOTE | 2025-09-05 11:26 | ECG ---
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
--- NOTE | 2025-09-05 11:28 | ECG ---
[facility] Test Date: 2025-09-05 Test Time: 11:19:29 Pat Name: ALEX CHAUDHARY Department: Room: Gender: F Shoe Stamper: TAMMY : 1985 Requested By: TOBY CASTLE Order Number: [id number] Reading MD: Lars Whitman Measurements Intervals [place] Rate: 86 P: 61 MD: 112 QRS: 46 QRSD: 85 T: 56 QT: 356 QTc: 426 Interpretive Statements Sinus rhythm Borderline short MD interval Low voltage, precordial leads Electronically Signed On 09-09-2025 10:53:54 PST by Lars Whitman Please click the below link to view image of tracing.
[2025-09-05 11:34] LABS: Chloride 106 mmol/L (98-107); Potassium 3.7 mmol/L (3.5-5.1); Sodium 142 mmol/L (136-145)
[2025-09-05 11:35] LABS: Anion Gap 10 (5-15); Calcium 8.9 mg/dL (8.7-10.4); Carbon Dioxide 26 mmol/L (20-31)
[2025-09-05 11:38] LABS: Hematocrit 31.4 % (36.0-46.0); Hemoglobin 9.4 g/dL (12.2-16.2); Mean Corpuscular Hemoglobin 18.2 pg (28.0-32.0); Mean Corpuscular Volume 61.0 fL (80.0-100.0); Nucleated Red Blood Cells % 0.0 %
[2025-09-05 11:40] LABS: BUN/Creatinine Ratio 7.1 (10.0-20.0); Blood Urea Nitrogen 6 mg/dL (9-23); Glucose 72 mg/dL (74-106)
[2025-09-05 11:55] LABS: Ovalocytes FEW
[2025-09-05] MEDS: IOHEXOL 350 MG/ML 100ML IJ ONE (12:16)
--- NOTE | 2025-09-05 13:16 | DVH ---
Indication: cp Technique: CT axial images of the abdomen and pelvis are obtained with intravenous contrast. Coronal and sagittal reformats were obtained. Radiation Dose Information: CTDI volume is 26.67 mGy. Dose-length product is 854.27 mGy*cm Comparison: None FINDINGS: There is no filling defect within the main left and right pulmonary arteries. Segmental and subsegmental branches not adequately characterized. Trachea patent. No pneumothorax. No pulmonary airspace consolidation. No pleural effusion. Splenomegaly with the spleen measuring 14 cm AP. Cholecystectomy. Small hiatal hernia. Distal esophageal wall thickening with small paraesophageal lymph nodes No aggressive osseous process. IMPRESSION: No evidence for large pulmonary embolism. No pulmonary airspace consolidation. Splenomegaly. Distal esophageal wall thickening with small paraesophageal lymph nodes. Correlate for esophagitis and other etiologies. Recommend GI consultation to evaluate.5 Other findings as described.
[2025-09-05 14:37] VITALS: BP 137/83; RESP 17; TEMP 98.2
[2025-09-05 14:48] VITALS: PULSE 83; O2SAT 99
[2025-09-05 15:25] LABS: Urine Protein, UAD TRACE (Negative)
--- NOTE | 2025-09-07 06:59 | ECG ---
[facility] Test Date: 2025-09-05 Test Time: 13:18:34 Pat Name: ALEX CHAUDHARY Department: Room: Gender: F Dish Up Person: TAMMY : 1985 Requested By: TOBY CASTLE Order Number: [id number] Reading MD: Lars Whitman Measurements Intervals [place] Rate: 88 P: 69 SC: 133 QRS: 29 QRSD: 70 T: 47 QT: 364 QTc: 441 Interpretive Statements Sinus rhythm Low voltage, precordial leads Electronically Signed On 09-09-2025 10:54:04 PST by Lars Whitman Please click the below link to view image of tracing.
== END 2025-09-05 14:47 | disposition home or self-care (01) ==
LOC: EEVIPCON 10:23 → ER 10:23
DX: D64.9 Anemia, unspecified (principal); R07.89 Other chest pain; F10.90 Alcohol use, unspecified, uncomplicated; F41.9 Anxiety disorder, unspecified; F32.A Depression, unspecified; Z79.899 Other long term (current) drug therapy; Z90.49 Acquired absence of other specified parts of digestive tract; Z98.51 Tubal ligation status; Y90.9 Presence of alcohol in blood, level not specified
CPT/HCPCS: 36415; 71046; 71275; 80048; 81001; 84484; 85025; 85379; 93005; 99285; Q9967

== ENCOUNTER 2025-10-04 06:00 | Day surgery (SDC) | payer BC, MEDICAID ==
[2025-10-03 13:25] LABS: Hemoglobin 9.1 g/dL (12.2-16.2); Nucleated Red Blood Cells % 0.0 %
[2025-10-03 13:26] LABS: Hematocrit 30.8 % (36.0-46.0); Mean Corpuscular Hemoglobin 17.9 pg (28.0-32.0); Mean Corpuscular Volume 60.7 fL (80.0-100.0)
[2025-10-03 13:27] LABS: Urine Protein, UAD Negative (Negative)
[2025-10-03 13:32] LABS: INR 1.0 (0.9-1.15); Partial Thromboplastin Time 24.6 SEC (24.5-34.5); Prothrombin Time 10.6 sec (9.3-11.8)
[2025-10-03 13:52] LABS: Alanine Aminotransferase 28 U/L (7-40); Albumin 4.1 g/dL (3.2-4.8); Anion Gap 11 (5-15); BUN/Creatinine Ratio 10.0 (10.0-20.0); Bilirubin, Total 0.3 mg/dL (0.2-1.0); Blood Urea Nitrogen 9 mg/dL (9-23); Calcium 9.2 mg/dL (8.7-10.4); Carbon Dioxide 25 mmol/L (20-31); Chloride 106 mmol/L (98-107); Glucose 99 mg/dL (74-106); Potassium 3.7 mmol/L (3.5-5.1); Sodium 142 mmol/L (136-145); Total Protein 7.6 g/dL (5.7-8.2)
[2025-10-03 13:57] LABS: Alkaline Phosphatase 134 U/L (46-116)
[~2025-10-04] VITALS: Ht 160 cm; Wt 99.8 kg
[~2025-10-04 06:00] MED LIST changes: +BREX1TAB3 PO; -CEPH500C PO; +ESCI20TA PO; -MEDR5TAB28 PO; -PANT1INJ3 PO; -SERT25TA84 PO; -SUCR1SUS26 PO
[2025-10-04] MEDS ORDERED: FAMOTIDINE (10MG/ML) 2ML VL IV ONE ×2 (07:11→07:30)
[2025-10-04] MEDS: ceFAZolin 2 GM/D5W50ml 50 ML IV ONE (07:34)
[2025-10-04] MEDS ORDERED: ACET-1882 PO (08:17)
[2025-10-04 08:21] VITALS: PULSE 110; RESP 16; TEMP 97.2; O2SAT 99
--- NOTE | 2025-10-04 08:21 | DVHPN2 ---
Visit Coding OBGYN Date of Service: Oct 04, 2025 Billing Provider: MARILYN LIMON DO EVENING SITTER Common Visit Codes: PROCEDURE ONLY EVENING SITTER Procedure Codes: 96222-T&C, DIAG OR THERAPEUTIC, 08989-[id number], SURG: W/EA MARILYN LIMON DO Oct 04, 2025 08:21
--- NOTE | 2025-10-04 08:26 | DVHOP ---
DATE OF SURGERY: 10/04/2025 PREOPERATIVE DIAGNOSIS: Abnormal uterine bleeding. FINAL DIAGNOSIS: Abnormal uterine bleeding, probable adenomyosis. PROCEDURES PERFORMED: 1. Pelvic exam under anesthesia. 2. Operative hysteroscopy. 3. Uterine dilation and curettage. 4. NovaSure endometrial ablation. SURGEON: Omer Mosqueda DO GUM ROLLING MACHINE OPERATOR: None. TYPE OF ANESTHESIA: General. ANESTHESIOLOGIST: Dr. Ligia Reyes. DESCRIPTION OF FINDINGS: An enlarged uterus, approximately 12-week size, anteverted uterine cavity sounds to 10 cm. Findings on hysteroscopy, secretory type endometrium, bilateral tubal ostia successfully seen. No intracavitary lesions. No gross evidence of malignancy. Successful ablation of the endometrial cavity with NOVASURE. TECHNICAL PROCEDURE: After informed consent was obtained, the patient was taken to the operating room where she underwent smooth induction with general anesthesia. The patient was placed in dorsal lithotomy position. The vagina, perineum, and abdomen were thoroughly prepped and the patient was sterilely draped in the usual fashion. A pelvic exam was then performed under anesthesia with the above-noted findings. A weighted speculum was placed into the patient's vagina. The anterior lip of the cervix was grasped with a single-tooth tenaculum. The uterine cavity sounded to 12 cm. A 6 mm 0-degree hysteroscope was inserted into the uterine cavity under direct visualization. Normal saline was used to distend the uterine cavity. Survey of the cavity revealed normal findings as described above. The hysteroscope was removed. A sharp uterine curettage was performed. Endometrial curettings were collected on [facility] and submitted to pathology. Next, the uterine depth and width were determined. The uterine length was 6.5 cm and the width was 4.3 cm. The settings were entered on the NovaSure generator. The array was inserted into the uterine cavity per conveyor belt repairer's instruction. The integrity test passed on 1st attempt. This was followed by an approximately 42-second endometrial ablation cycle. At the conclusion of the ablation cycle, the instrument was removed from the uterine cavity. Another diagnostic hysteroscopy was performed. The cavity appeared to be completely and successfully ablated with no live or vibrant endometrial tissue noted at this point. All instrumentation was removed from the patient's vagina. There was no bleeding from the cervix at the tenaculum site. The patient was taken out of lithotomy position, awakened, and taken to recovery room in stable condition. INTRAOPERATIVE COMPLICATIONS: None. ESTIMATED BLOOD LOSS: Less than 15 mL. POSTOPERATIVE CONDITION: Stable. SPECIMENS: Endometrial curettings. MEDICATIONS: Ancef 2 g. DO FINA Mejia/LEX TID: [id number] RECEIPT: [id number] MTDD
[2025-10-04] MEDS ORDERED: ACETAMINOPHEN IV 1000 MG/100ML (10MG/ML) IV ONE (08:30)
[2025-10-04] MEDS ORDERED: ONDANSETRON HCL 4 MG/2 ML VIAL IV PRN (08:30)
[2025-10-04] MEDS ORDERED: HYDROmorphone HCL 2 MG/ML VL/or syr IV PRN (08:30)
[2025-10-04 09:40] VITALS: BP 126/68; PULSE 102; RESP 15; O2SAT 96
== END 2025-10-04 10:08 | disposition home or self-care (01) ==
LOC: EEVIPCON → SUR 06:00
PROVIDERS: ATTEND Obstetrics & Gynecology
DX: N93.9 Abnormal uterine and vaginal bleeding, unspecified (principal); N80.03 Adenomyosis of the uterus; K21.9 Gastro-esophageal reflux disease without esophagitis; K44.9 Diaphragmatic hernia without obstruction or gangrene; Z79.899 Other long term (current) drug therapy; Z87.11 Personal history of peptic ulcer disease; Z86.2 Personal history of diseases of the blood and blood-forming organs and certain disorders involving the immune mechanism; Z98.891 History of uterine scar from previous surgery; Z98.890 Other specified postprocedural states
CPT/HCPCS: 36415; 58563; 80053; 81001; 81025; 85025; 85610; 85730; 86850; 86900; 86901; 88305; J0690; J3490